=== PATIENT | female | born 1990 | race Caucasian/White ===

== ENCOUNTER → 2020-10-05 12:31 | Outpatient (BNVA) | payer OTHER, SELFPAY | PROVIDERS: Visit Provider Nurse Practitioner Family | DX: Z11.59 Encounter for screening for other viral diseases (principal); Z20.828 Contact with and (suspected) exposure to other viral communicable diseases; J06.9 Acute upper respiratory infection, unspecified | CPT/HCPCS: 87635 ==

== ENCOUNTER → 2020-10-29 14:26 | Outpatient (BNVA) | payer OTHER, SELFPAY | PROVIDERS: Visit Provider Nurse Practitioner Family | DX: Z20.828 Contact with and (suspected) exposure to other viral communicable diseases (principal) | CPT/HCPCS: 87635 ==

== ENCOUNTER 2021-10-23 15:11 | Emergency (ER) | payer BC, MEDICAID, SELFPAY ==
[2021-10-23 15:32] VITALS: BP 137/94; PULSE 112; RESP 16; TEMP 36.4; O2SAT 99; BMI 30.5
[2021-10-23 15:37] VITALS: BP 137/94; PULSE 110; RESP 16; TEMP 36.4; O2SAT 98
--- NOTE | 2021-10-23 16:20 | ED_ITS ---
HPI - Dental/Oral General: Chief complaint: Dental/Oral Stated complaint: R SIDE TOOTH PAIN Time Seen by Provider: 10/23/21 16:20 Source: patient Mode of arrival: ambulatory Limitations: no limitations History of Present Illness: HPI Narrative: Patient is a 31-year-old female here with complaints of severe dental pain. Patient states over the past several days she has had severe right lower dental pain. She was placed on Augmentin yesterday at a walk-in clinic. She states her pain is unbearable. She has been trying OTC Tylenol and topical analgesics without much relief. She has not noticed any facial swelling. She has no neck pain or difficulty swallowing. No fevers. MD Complaint: tooth pain Onset (ago): day(s) Duration: constant Severity: severe Relieving factors: nothing Associated symptoms: Reports no associated symptoms; Denies ear or mastoid pain, fever(s) or odynophagia Treatment prior to arrival: topical analgesic and oral analgesic Review of Systems Const: Denies: fever(s), chills, body aches, fatigue or malaise ENMT: Reports: dental pain; Denies: throat pain, odynophagia, hoarseness, oral sores or ear or mastoid pain Card: Denies: chest pain Resp: Denies: dyspnea GI: Denies: nausea or vomiting Musc: Denies: neck pain Skin/Breast: Denies: rash Neuro: Denies: headache(s) Physical Exam Const: COMMON NORMALS: average body habitus, patient oriented x3, no limitations, healthy appearing, alert and well nourished GENERAL APPEARANCE: cooperative and in distress (patient in tears secondary to dental pain) HENMT: COMMON NORMALS: normocephalic, atraumatic, external ears normal, EAC's normal, TM's normal bilaterally, Normal external nose present, Normal nasal mucous membranes and turbinates present, moist oral mucous membranes and oropharynx normal HEAD & SCALP: normal to inspection, normocephalic and atraumatic FACE & SINUS: normal facial exam and sinuses nontender NOSE: Normal external nose present and Normal nasal mucous membranes and turbinates present EXTERNAL EAR: Yes external ears normal EXTERNAL AUDITORY CANAL: EAC's normal TYMPANIC MEMBRANE: TM's normal bilaterally MOUTH: Normal oral and palatal mucosa present, lip normal and tongue normal TEETH & GINGIVA: Yes poor dentition and Yes other (decayed R lower molar with gingival swelling/erythema; no abscess) THROAT: posterior oropharynx normal, tonsils normal and uvula midline Eye: GENERAL EYE: appearance normal, both eyes and all related structures Neck/C-Spine: COMMON NORMALS: full ROM and no lymphadenopathy GENERAL: No anterior neck swelling and No submandibular swelling Resp: COMMON NORMALS: normal respiratory effort Cardio: COMMON NORMALS: regular rate and regular rhythm RATE: regular rate RHYTHM: regular rhythm Neuro: COMMON NORMALS: patient oriented x3 SENSORIUM/ORIENTATION: Yes alert Skin: COMMON NORMALS: no rashes or lesions noted GENERAL SKIN EXAM: no rashes or lesions noted Course Vital Signs: Vital signs: Vital Signs Temperature 97.6 F 10/23/21 15:37 Pulse Rate 106 H 10/23/21 16:51 Respiratory Rate 18 10/23/21 16:51 Blood Pressure 127/80 10/23/21 16:51 Pulse Oximetry 99 10/23/21 16:51 MDM - Dental/Oral MDM Narrative: Medical decision making narrative: Patient has been trying OTC topical and oral analgesics without relief of her discomfort. During exam she is in tears secondary to her discomfort. Patient is already taking antibiotics. She is requesting for something for to help with her discomfort. We spoke about prescription pain medication use during and the risks associated with this. Patient verbalizes understanding and would like to go ahead and try something just for a few days for relief. Discussed using smallest amount possible for the shortest amount of time possible. Recommend dental follow up as soon as possible. Discharge Plan Discharge Patient Disposition: Home Clinical Impression: Pain, dental Condition: Stable Prescriptions: New hydrocodone-acetaminophen 5-325 mg tablet 1 tab PO Q6H PRN (Reason: pain) Qty: 10 RF: 0 No Action No Known Home Medications RF: 0 Discharge Orders: Discharge ED (Routine); Ordered 10/23/21 Ordered By: Mariya Ballesteros Patient Instructions: Toothache (ED), Opioid Safety Activity Restrictions/Additional Instructions: [facility] is committed to fighting the nationwide opiate epidemic. We are providing ALL patients with information regarding opiate safety. If you received opiate pain medication during your stay or if you received a prescription for opiate pain medication-please review this handout. If not, you may disregard. Thank you. As we discussed opiate pain medication is generally not recommended during except for in cases of severe pain and the risks vs benefits must be considered. You have indicated that [id number] analgesics are not controlling your discomfort and are requesting stronger pain medications at this time despite potential risks. As we discussed please take the lowest dose possible (breaking the tablets in half) and use for the shortest amount of time possible. Please follow-up with your dentist as soon as possible. Return to ED precautions given. Coding Level of Care Code ED B[employer] Machine Helper for Jose Villafana
[2021-10-23 16:51] VITALS: BP 127/80; PULSE 106; RESP 18; O2SAT 99
== END 2021-10-23 16:43 | disposition home or self-care (01) ==
PROVIDERS: Emergency Provider Physician Assistant
DX: K08.89 Other specified disorders of teeth and supporting structures (principal)
CPT/HCPCS: 99281

== ENCOUNTER 2022-03-31 17:26 | Emergency (ER) | payer BC, MEDICAID, SELFPAY ==
[2022-03-31 17:49] VITALS: BP 150/90; PULSE 93; RESP 18; TEMP 36.3; O2SAT 100; BMI 35.2
--- NOTE | 2022-03-31 17:56 | W.ED.DENTAL ---
HPI - Dental/Oral General: Chief complaint: Dental/Oral Stated complaint: Toothache Time Seen by Provider: 03/31/22 17:56 History of Present Illness: 31-year-old female comes in today for complaints of right upper molar pain. Patient has a wisdom tooth that has broke through but has developed decay and occasionally gets infected. Patient is in a 32-week of and dentist will not remove tooth at this time. Patient comes in today due to exacerbation of pain and some mild swelling to the jaw. Review of Systems General: Reports: 10 or more systems reviewed and unremarkable except in HPI and below ENMT: Reports: dental pain Physical Exam Const: COMMON NORMALS: alert HENMT: COMMON NORMALS: normocephalic HEAD & SCALP: normocephalic TEETH & GINGIVA: Yes caries and Yes fair dentition Neck/C-Spine: COMMON NORMALS: no meningeal signs Resp: COMMON NORMALS: normal respiratory effort Cardio: COMMON NORMALS: regular rate RATE: regular rate Extremity: COMMON NORMALS: normal to inspection Neuro: SENSORIUM/ORIENTATION: Yes alert MENINGEAL SIGNS: Yes no meningeal signs Skin: COMMON NORMALS: no rashes or lesions noted GENERAL SKIN EXAM: no rashes or lesions noted Course Vital Signs: Vital signs: Vital Signs Temperature 97.4 F L 03/31/22 17:49 Pulse Rate 93 03/31/22 17:49 Respiratory Rate 18 03/31/22 17:49 Blood Pressure 150/90 03/31/22 17:49 Pulse Oximetry 100 03/31/22 17:49 [facility] - Dental/Oral Medical Decision Making 31-year-old female comes in today with dental pain. On exam patient has decayed third molar in the right upper jaw. No significant swelling of the face is noted. Patient does have some swelling and mild redness to the gingiva. Posterior pharynx is normal. Differential diagnosis includes periapical abscess, dental caries, toothache. No sign of serious illnesses noted. Patient be treated for Amoxil 503 times a day for 10 days. Patient was given 10 tablets of hydrocodone for further pain relief. Discharge Plan Discharge Patient Disposition: Home Clinical Impression: Toothache Condition: Stable Prescriptions: New amoxicillin 500 mg capsule 500 mg PO TID 10 Days Qty: 30 0RF Continued hydrocodone-acetaminophen 5-325 mg tablet 1 tab PO Q6H PRN (Reason: pain) Qty: 10 0RF Discharge Orders: Discharge ED (Routine); Ordered 03/31/22 Ordered By: Lobo Montes Discharge Diet: Usual diet Patient Instructions: Toothache (ED), Opioid Safety Activity Restrictions/Additional Instructions: Good oral care. Drink plenty of water with medication. Use ice or heat to the area for further pain relief. Follow-up with primary care for further instruction. Follow-up with dentist for definitive care. Coding Level of Care Code ED Foreign Broadcast Specialist for Jose Villafana
== END 2022-03-31 18:16 | disposition home or self-care (01) ==
PROVIDERS: Emergency Provider Nurse Practitioner Family
DX: O99.891 Other specified diseases and conditions complicating pregnancy (principal); K08.89 Other specified disorders of teeth and supporting structures; Z3A.32 32 weeks gestation of pregnancy
CPT/HCPCS: 99283

== ENCOUNTER 2022-05-08 19:00 | Outpatient (CLI) | payer BC, SELFPAY ==
[2022-05-08 19:17] VITALS: BP 140/74; PULSE 113
[2022-05-08 19:20] VITALS: TEMP 36.4; BMI 37.9
[2022-05-08 20:06] VITALS: RESP 16
[2022-05-08 20:09] VITALS: BP 132/74; PULSE 100
[2022-05-08 20:10] VITALS: TEMP 35.9
== END 2022-05-08 20:30 | disposition home or self-care (01) ==
LOC: OPOB 19:06 → OBGYN 19:07
PROVIDERS: Visit Provider Family Medicine
DX: O46.90 Antepartum hemorrhage, unspecified, unspecified trimester (principal); Z3A.00 Weeks of gestation of pregnancy not specified
CPT/HCPCS: 59025; 99211

== ENCOUNTER 2022-05-13 04:12 | Inpatient (IN) | payer BC, MEDICAID, SELFPAY ==
[2022-05-13] VITALS (82 sets, daily range): BP systolic 111–160; BP diastolic 59–94; PULSE 78–116; RESP 15–18; TEMP 36.3–37.1; O2SAT 99–100; BMI 38.0
[2022-05-13 04:28] LABS: Basophils # 0.1 10^3/uL (0.0-0.1); Basophils % 0.3 %; Eosinophils # 0.2 10^3/uL (0.0-0.8); Eosinophils % 1.3 %; Hematocrit 33.6 % (37.0-47.0); Hemoglobin 11.5 g/dL (11.5-15.3); Lymphocytes # 3.6 10^3/uL (0.8-4.8); Lymphocytes % 21.8 %; Mean Corpuscular HGB Conc 34.2 g/dL (30.0-36.0); Mean Corpuscular Hemoglobin 28.2 pg (28.0-34.0); Mean Corpuscular Volume 82.4 fl (81-99); Monocytes # 0.9 10^3/uL (0.2-0.9); Monocytes % 5.6 %; Neutrophils # 11.57 10^3/uL (1.8-7.7); Neutrophils % 70.5 %; Nucleated Red Blood Cells % 0 %; Platelet Count 406 10^3/cmm (130-400); Red Blood Count 4.08 10^6/uL (4.1-5.3); Red Cell Distribution Width 13.5 % (12.1-15.1); White Blood Count 16.4 10^3/uL (4.0-10.0)
[2022-05-13] MEDS: miSOPROStol 100 mcg tablet 25 MCG SUBLINGUAL ×2 (04:52→09:32)
--- NOTE | 2022-05-13 07:23 | PM.OPHPUD ---
Labor & Delivery H&P Update Date of Procedure: May 13, 2022 Date H&P Performed: 05/11/22 Admission Diagnosis: 32-year-old 1 at 37 weeks and 4 days presenting with spontaneous rupture of membranes Other information: The patient is an otherwise healthy female who had an unremarkable . She presented to the hospital complaining that she had leakage of fluid just prior to coming to the hospital. She had an initial gush and then some trickling after that. Her has not had any other abnormalities. Her blood work has been unremarkable. Her blood type is a positive. She her antibody screen is negative. She failed her initial glucose screen but passed her 3-hour. Her drug screen was positive for marijuana. Her hepatitis B and C, HIV, and RPR were within normal limits. She is GBS negative.
[2022-05-13 08:27] LABS: Amphetamines Screen Urine Negative (Negative); Barbiturates Screen Urine Negative (Negative); Benzodiazepines Screen Urine Negative (Negative); Cocaine Screen Urine Negative (Negative); Opiate Screen Urine Negative (Negative); PCP Screen Urine Negative (Negative); THC Screen Urine Positive (Negative)
[2022-05-13] MEDS: dextrose 5%-lactated ringers 1,000 ML 125 ML IV (15:43)
[2022-05-13] MEDS: fentaNYL 50 mcg/mL INJ 2mL IVP ×4 (15:44→23:15)
[2022-05-13] MEDS: oxytocin 30 UNIT/500 ML BAG IV (20:30)
[2022-05-13] MEDS: lactated ringers 1,000 ML 999 ML IV (21:27)
--- NOTE | 2022-05-13 22:35 | ANES.PREANE2 ---
Pre-Anesthetic Assessment Height/Weight: Height 1.7 m Weight 110.223 kg Temp Pulse Resp BP 97.5 F L 88 15 138/77 05/13/22 22:09 05/13/22 22:25 05/13/22 20:35 05/13/22 22:25 Preop Diagnosis: labor epidural Familial anesthetic complications: none Was Beta Skinny taken within 24 hours: N/A Was Clonidine taken within 24 hours: N/A Last Intake: 22:00 Social Tobacco and No alcohol 1/2 pack(s) per day 8+ pack years Exam alert, oriented x 3, clear to auscultation bilaterally and regular rate & rhythm Airway Submandibular: within normal limits Cervical ROM: within normal limits Mallampati: Class III Dentition: full (poor) Pulmonary None reported CV/HEM None reported None reported Hepatic None reported GI None reported Metabolic Morbid Obesity [facility] [place] None reported Neuropsych Anxiety and Depression Anesthetic Plan ASA status: 2 Anesthesia: Regional (specify below) (epidural) Risk of > 500 ml blood loss (7ml/kg in children): No Medications/Allergies Home Medications Medication Instructions Recorded Confirmed Last Taken Type vitamin with calcium 1 tab PO DAILY 05/13/22 05/13/22 05/12/22 08:00 History no.72-iron 27 mg-folic acid 1 mg tablet (M- Plus) Allergies Allergy/AdvReac Type Severity Reaction Status Date / Time No Known Allergies Allergy Verified 05/13/22 03:41 Current Medications Generic Name Dose Route Start Last Admin Trade Name Freq PRN Reason Stop Dose Admin Fentanyl 25 - 100 mcg 05/13/22 04:05 05/13/22 20:35 Fentanyl 50 Mcg/Ml Inj 2ml IVP 25 mcg Q1H PRN Administration SEVERE PAIN Dextrose/Lactated Ringer's 1,000 mls @ 125 mls/hr 05/13/22 04:15 05/13/22 15:43 Dextrose 5%-Lactated Ringers IV 125 mls/hr .Q8H FILIPPO Administration Oxytocin 30 unit in 500 mls @ 1 mls/hr 05/13/22 20:30 05/13/22 22:15 Pitocin IV 13 milliunit/min .Q24H FILIPPO 13 mls/hr Titration Protocol 1 MILLIUNIT/MIN Lactated Ringer's 1,000 mls @ 999 mls/hr 05/13/22 21:17 05/13/22 21:27 Lactated Ringers IV 999 mls/hr .Q1H1M PRN Administration See label comments PFSH Anesthesia Female Reproductive History : 1 Data Anesthesia : 05/13/22 04:16 Short CBC 05/13/22 Range/Units 04:16 WBC 16.4 H (4.0-10.0) 10^3/uL Hgb 11.5 (11.5-15.3) g/dL Hct 33.6 L (37.0-47.0) % MCV 82.4 (81-99) fl Plt Count 406 H (130-400) 10^3/cmm Neut % (Auto) 70.5 % Neut # (Auto) 11.57 H (1.8-7.7) 10^3/uL Cardiac Studies: No Data to Display
--- NOTE | 2022-05-13 23:39 | ANES.PROC ---
Anesthesia Procedures Procedure/Date: 05/13/22 Epidural: Time Out Performed: Yes Consents Signed: Procedure Consent and NPO Consent Consent: requested by attending/covering physician, from patient, risks and benefits reviewed and patient agrees to proceed Lumbar Level: L3-L4 Epidural position: sitting Epidural procedure: sterile prep of area, 1% lidocaine to numb the area, 18 g needle, neg for paresthesia, test dose given, 1.5% xylocaine 1:200k epi (3/2), 0.2% Ropivacaine bolus ml (5), placed PCEA, no systemic response, sterile dressing applied, L.U.D. no apparent complications and 0.2% Ropiavacaine @ mls/hr (13ml/hr) Additional Comments: unable to access epidural space at l4/l5. Moved up to l3/l4 to access epidural space
[2022-05-14] VITALS (75 sets, daily range): BP systolic 99–149; BP diastolic 58–90; PULSE 73–115; RESP 15; TEMP 36.4–36.9
[2022-05-14] MEDS: hyDROXYzine 25 mg Capsule 50 MG PO (03:01)
[2022-05-14] MEDS: dextrose 5%-lactated ringers 1,000 ML 125 ML IV ×2 (03:22→11:15)
[2022-05-14] MEDS: ALPRAZolam 0.5 mg Tablet 0.25 MG PO (05:51)
[2022-05-14] MEDS: ampicillin 2,000 MG in sodium chloride 0.9% (plus) 50 ML 100 MG IV (11:32)
--- NOTE | 2022-05-14 11:32 | ANES.PROC ---
Anesthesia Procedures Procedure/Date: 05/14/22 Other Information: Pt C/O breakthrough pain, pressure. Lido 2% 4cc and Fentanyl 100mcg given. Pt now stating she needs to push. Pt comlete. Nurse notified
--- NOTE | 2022-05-14 12:47 | P.PCNOB_ITS ---
Delivery Note: Date of delivery: May 14, 2022 Pre-delivery diagnoses: IUP at 37 weeks 3 days gestation Premature spontaneous rupture of membranes Procedure: Induction of labor and delivery Delivering Physician: Ros Rivas MD Covering for Dr. Jackson Estimated blood loss (mL): 300 Pre-Delivery Course: The patient had routine care at [facility] with Dr. Jackson. She is blood type a positive, antibody negative, GC chlamydia negative, THC positive, hepatitis B surface antigen nonreactive, hepatitis C antibody nonreactive, HIV nonreactive, rubella immune, GBS negative. She passed her glucose tolerance test. Rupture of membranes was approximately 34 hours prior to delivery. Mother did receive 1 dose of ampicillin less than 2 hours prior to delivery. She remained afebrile. Delivery: This is a 32-year-old at 37 weeks 3 days gestation who presented to labor and delivery with spontaneous rupture of membranes. Her cervix was not favorable so she was given Cytotec. After she was started on Pitocin. She did receive an epidural for pain management. She had a normal spontaneous vaginal delivery of a viable female weight 2765 g, 6 pounds 2 ounces over an intact perineum. Apgars were 8 and 9. The infant was suctioned at delivery and placed on the mother's chest. The cord was clamped and cut after 1 minute of life. Using gentle traction on the cord, the placenta was delivered grossly intact and normal to inspection. There was a small second-degree perineal laceration that was sutured using 3-0 chromic. Mother and infant were doing well after delivery. A&P Assessment and plan (1) (normal spontaneous vaginal delivery): Routine care Status: Acute Coding Level of Care Code Acute Behavior Management Specialist for Chg Fwd Diagnoses (normal spontaneous vaginal delivery) O80
--- NOTE | 2022-05-14 15:48 | ANE.PACU2 ---
Inpatient post-anesthesia follow up: Airway intact: Yes Vital signs: Temperature 98.4 F Pulse Rate 115 Respiratory Rate 18 Blood Pressure 133/86 Pulse Oximetry 99 Oxygen Delivery Me thod Room Air Oxygen Flow Rate Fraction of Inspir ed Oxygen Hydration adequate: Yes Nausea and vomiting: No Pain level: 2 Mental status: Baseline
[2022-05-14] MEDS: ibuprofen 800 mg tablet PO ×2 (16:42→21:46)
[2022-05-14] MEDS: lanolin oint 7 gm 1 APPLIC TOPICAL (16:43)
[2022-05-14] MEDS: benzocaine-menthol 78 gm Canister 1 SPRAY TOPICAL (16:43)
[2022-05-15 01:39] LABS: Hematocrit 28.1 % (37.0-47.0); Hemoglobin 9.7 g/dL (11.5-15.3); Mean Corpuscular HGB Conc 34.5 g/dL (30.0-36.0); Mean Corpuscular Hemoglobin 28.4 pg (28.0-34.0); Mean Corpuscular Volume 82.2 fl (81-99); Mean Platelet Volume 10.1 fL (7.4-10.4); Platelet Count 323 10^3/cmm (130-400); Red Blood Count 3.42 10^6/uL (4.1-5.3); Red Cell Distribution Width 13.6 % (12.1-15.1); White Blood Count 21.5 10^3/uL (4.0-10.0)
[2022-05-15 02:39] VITALS: BP 120/62; PULSE 96
[2022-05-15 06:20] VITALS: BP 125/80; PULSE 91
--- NOTE | 2022-05-15 08:43 | P.DS_ITS ---
Discharge Providers MANAGER SERVICE DESK Date of Admission: 05/13/22 04:12 Date of Discharge: 05/18/22 Attending Provider at Admission: Harpreet Jackson MD Attending Provider at Discharge: Harpreet Jackson MD Diagnoses at Discharge Discharge Diagnosis (1) (normal spontaneous vaginal delivery): Status: Resolved Reason for Visit Reason for Visit: PROM Information Peripartum Data: Delivery Method: Vaginal Physical Exam Narrative: The patient is alert. She appears comfortable. Her heart has a regular rate and rhythm with no murmurs appreciated. Lungs are clear to auscultation bilaterally. Her fundus is firm and below the umbilicus. Urinary Catheter Management: Davison: Cath Placed During This Visit: yes Reason for Continuing Indwelling Catheter: Required Immobilization for Trauma or Surgery or Anesthesia Urinary Catheter Date of Insertion: 05/14/22 Urinary Catheter Time of Insertion: 23:09 Discharge Data Studies Completed and Pending Laboratory Results WBC 21.5 10^3/uL (4.0-10.0) H 05/15/22 01:31 RBC 3.42 10^6/uL (4.1-5.3) L 05/15/22 01:31 Hgb 9.7 g/dL (11.5-15.3) L 05/15/22 01:31 Hct 28.1 % (37.0-47.0) L 05/15/22 01:31 MCV 82.2 fl (81-99) 05/15/22 01:31 MCH 28.4 pg (28.0-34.0) 05/15/22 01:31 MCHC 34.5 g/dL (30.0-36.0) 05/15/22 01:31 RDW 13.6 % (12.1-15.1) 05/15/22 01:31 Plt Count 323 10^3/cmm (130-400) 05/15/22 01:31 MPV 10.1 fL (7.4-10.4) 05/15/22 01:31 Neut % (Auto) 70.5 % 05/13/22 04:16 Lymph % (Auto) 21.8 % 05/13/22 04:16 [place] % (Auto) 5.6 % 05/13/22 04:16 Eos % (Auto) 1.3 % 05/13/22 04:16 Baso % (Auto) 0.3 % 05/13/22 04:16 Neut # (Auto) 11.57 10^3/uL (1.8-7.7) H 05/13/22 04:16 Lymph # (Auto) 3.6 10^3/uL (0.8-4.8) 05/13/22 04:16 [place] # (Auto) 0.9 10^3/uL (0.2-0.9) 05/13/22 04:16 Eos # (Auto) 0.2 10^3/uL (0.0-0.8) 05/13/22 04:16 Baso # (Auto) 0.1 10^3/uL (0.0-0.1) 05/13/22 04:16 Nucleated RBC % (auto) 0 % 05/13/22 04:16 Nucleated RBCs # 0.0 /100WBC 05/13/22 04:16 Urine Opiates Screen Negative ng/mL (Negative) 05/13/22 04:45 Ur Barbiturates Screen Negative ng/mL (Negative) 05/13/22 04:45 Ur Phencyclidine Scrn Negative ng/mL (Negative) 05/13/22 04:45 Ur Amphetamines Screen Negative ng/mL (Negative) 05/13/22 04:45 U Benzodiazepines Scrn Negative ng/mL (Negative) 05/13/22 04:45 Urine Cocaine Screen Negative ng/mL (Negative) 05/13/22 04:45 U Marijuana (THC) Screen Positive ng/mL (Negative) H 05/13/22 04:45 Vitals Last Vital Signs Temp 98.0 F 05/14/22 22:25 Pulse 91 05/15/22 06:20 Resp 15 05/14/22 13:54 BP 125/80 05/15/22 06:20 Pulse Ox 99 05/13/22 23:32 Discharge Plan Discharge Patient Disposition: Home Condition: Stable Prescriptions: New ibuprofen 800 mg Tablet 800 mg PO TID Qty: 45 0RF Continued M-Isa Plus 27 mg iron- 1 mg tablet 1 tab PO DAILY 0RF Discharge Orders: Discharge Order (Routine); Ordered 05/15/22 Ordered By: Harpreet Jackson Referrals: Harpreet Jackson MD [Physician] - 06/27/22 1:15 pm (6 week appointment 06/27/2022 @01:15 ) Discharge Diet: Usual diet Discharge Activity: Limit activity as instructed Patient Instructions: Depression (GEN), and Nipple Soreness (GEN), and Breast Engorgement (GEN), Bleeding (GEN), Preeclampsia and Eclampsia After Delivery (GEN), OB Discharge Report, OB Food/Drug Interaction Guide, Opioid Safety, OB Home Care, OB Vaginal Deliveries Discharge Attestations MANAGER SERVICE DESK Time Spent in Discharge Care*: less than 30 min Coding Level of Care Code Acute C 13 Catapult Operator for Chg Fwd Diagnoses (normal spontaneous vaginal delivery) O80
[2022-05-15 09:13] VITALS: BP 139/77; PULSE 91
[2022-05-15] MEDS: docusate sodium 100 mg Capsule PO (09:13)
[2022-05-15] MEDS: prenatal vitamin Capsule 1 CAP PO (09:13)
[2022-05-15] MEDS: ibuprofen 800 mg tablet PO (09:13)
[2022-05-15 13:59] VITALS: BP 139/77; PULSE 91; RESP 16; TEMP 36.9; O2SAT 99
== END 2022-05-15 13:56 | disposition home or self-care (01) | DRG 807 ==
LOC: OPOB 10:13 → OBGYN 10:13
PROVIDERS: Family Medicine; Admitting Provider Family Medicine; Visit Provider Family Medicine
DX: O99.324 Drug use complicating childbirth (principal); Z37.0 Single live birth; F12.90 Cannabis use, unspecified, uncomplicated; O70.1 Second degree perineal laceration during delivery; O99.334 Smoking (tobacco) complicating childbirth; F17.200 Nicotine dependence, unspecified, uncomplicated; Z3A.37 37 weeks gestation of pregnancy
CPT/HCPCS: 12345; 36415; 51702; 59025; 59409; 80306; 83986; 85025; 85027; 96374; 96376; 99211; J0290; J2795; J3010

== ENCOUNTER 2023-10-21 02:02 | Emergency (ER) | payer BC, MEDICAID, SELFPAY ==
[2023-10-21 02:09] VITALS: BP 138/74; PULSE 92; RESP 20; TEMP 36.8; O2SAT 100; BMI 34.4
--- NOTE | 2023-10-21 02:12 | CTR_ITS ---
PROCEDURE INFORMATION: Exam: CTA Head With Contrast, Arteriography Exam date and time: 10/21/2023 3:10 AM Age: 33 years old Clinical indication: Pain; Headache; Patient HX: Frontal ROY with n/v x 5 days. TECHNIQUE: Imaging protocol: Computed tomographic angiography of the head with contrast. Exam focused on the arteries. 3D rendering (Not supervised by radiologist): MIP and/or 3D reconstructed images were created by the technologist. Radiation optimization: All CT scans at this facility use at least one of these dose optimization techniques: automated exposure control; mA and/or kV adjustment per patient size (includes targeted exams where dose is matched to clinical indication); or iterative reconstruction. Contrast material: OMNI 350; Contrast volume: 100 ml; Contrast route: INTRAVENOUS (IV); REPORTING DATA: Count of CT and Cardiac NM exams in prior 12 months: This patient has received 0 known CTs and 0 known cardiac nuclear medicine studies in the 12 months prior to the current study. COMPARISON: CT head wo con* [id number] 10/21/2023 2:39 AM RADIATION DOSE METRICS: Total DLP (mGy-cm): 552.83 FINDINGS: ANTERIOR CIRCULATION: Right internal carotid artery: Intracranial segment is patent with no significant stenosis. No aneurysm. Right middle cerebral artery: No occlusion or significant stenosis. No aneurysm. Right anterior cerebral artery: No occlusion or significant stenosis. No aneurysm. Left internal carotid artery: Intracranial segment is patent with no significant stenosis. No aneurysm. Left middle cerebral artery: No occlusion or significant stenosis. No aneurysm. Left anterior cerebral artery: No occlusion or significant stenosis. No aneurysm. POSTERIOR CIRCULATION: Right vertebral artery: No occlusion or significant stenosis. No aneurysm. Left vertebral artery: No occlusion or significant stenosis. No aneurysm. Basilar artery: No occlusion or significant stenosis. No aneurysm. Right posterior cerebral artery: No occlusion or significant stenosis. No aneurysm. Left posterior cerebral artery: No occlusion or significant stenosis. No aneurysm. Brain: No definite mass, mass effect, or midline shift. Cerebral ventricles: No ventriculomegaly. Bones/joints: Unremarkable. No acute fracture. Soft tissues: Unremarkable. PROCEDURE INFORMATION: Exam: CTA Neck With Contrast Exam date and time: 10/21/2023 3:10 AM Age: 33 years old Clinical indication: Pain; Headache; Patient HX: Frontal ROY with n/v x 5 days. TECHNIQUE: Imaging protocol: Computed tomographic angiography of the neck with contrast. Exam focused on the cervical segments of the vasculature. 3D rendering (Not supervised by radiologist): MIP and/or 3D reconstructed images were created by the technologist. Radiation optimization: All CT scans at this facility use at least one of these dose optimization techniques: automated exposure control; mA and/or kV adjustment per patient size (includes targeted exams where dose is matched to clinical indication); or iterative reconstruction. Contrast material: OMNI 350; Contrast volume: 100 ml; Contrast route: INTRAVENOUS (IV); REPORTING DATA: Count of CT and Cardiac NM exams in prior 12 months: This patient has received 0 known CTs and 0 known cardiac nuclear medicine studies in the 12 months prior to the current study. COMPARISON: CT head wo con* [id number] 10/21/2023 2:39 AM RADIATION DOSE METRICS: Total DLP (mGy-cm): 552.83 FINDINGS: Right common carotid artery: No stenosis. No dissection or occlusion. Right internal carotid artery: No stenosis of the extracranial segment. No dissection or occlusion. Right external carotid artery: No occlusion or stenosis of the origin. Left common carotid artery: No stenosis. No dissection or occlusion. Left internal carotid artery: No stenosis of the extracranial segment. No dissection or occlusion. Left external carotid artery: No occlusion or stenosis of the origin. Right vertebral artery: No stenosis. No dissection or occlusion. Left vertebral artery: No stenosis. No dissection or occlusion. Soft tissues: Normal. No significant soft tissue swelling. Bones/joints: No acute fracture. CT/CT angio headneck* [id number] IMPRESSION: No large vessel stenosis or occlusion. IMPRESSION: No stenosis or occlusion. REFERENCES: NASCET CRITERIA. The degree of stenosis in the cervical segment of the internal carotid artery is based on NASCET criteria. Normal is no stenosis. Mild is less than 50% stenosis. Moderate is 50-69% stenosis. Severe is 70% to 99% stenosis. Total occlusion is no detectable patent lumen.
--- NOTE | 2023-10-21 02:12 | CTR_ITS ---
PROCEDURE INFORMATION: Exam: CT Head Without Contrast Exam date and time: 10/21/2023 2:39 AM Age: 33 years old Clinical indication: Pain; Headache; Patient HX: Frontal ROY with n/v x 5 days. TECHNIQUE: Imaging protocol: Computed tomography of the head without contrast. Radiation optimization: All CT scans at this facility use at least one of these dose optimization techniques: automated exposure control; mA and/or kV adjustment per patient size (includes targeted exams where dose is matched to clinical indication); or iterative reconstruction. REPORTING DATA: Count of CT and Cardiac NM exams in prior 12 months: This patient has received 0 known CTs and 0 known cardiac nuclear medicine studies in the 12 months prior to the current study. COMPARISON: No relevant prior studies available. RADIATION DOSE METRICS: Total DLP (mGy-cm): 883.45 FINDINGS: Brain: No hemorrhage. No edema, mass effect or midline shift. Cerebral ventricles: No ventriculomegaly. Paranasal sinuses: Visualized sinuses are unremarkable. No fluid levels. Mastoid air cells: No mastoid effusion. Bones/joints: No acute fracture. Soft tissues: Unremarkable. CT/CT head wo con* [id number] IMPRESSION: No acute intracranial abnormality.
--- NOTE | 2023-10-21 02:14 | W.ED.HA ---
HPI - Headache General: Chief Complaint: Headache Stated Complaint: headache Time Seen by Provider: 10/21/23 02:06 Source: patient Mode of arrival: ambulatory Limitations: no limitations History of Present Illness: 33-year-old female states that she had a headache over the last 5 days states the headaches currently a 10 out of 10 she had some nausea vomiting denies any history headache she denies any fever denies any neck pain some slight worsening with bright lights and loud sounds. Associated symptoms: Reports nausea; Deny chest pain, fever(s) or rash Review of Systems Const: Denies: fever(s), chills, body aches or change in appetite Eyes: Denies: blurry vision or eye discomfort ENMT: Denies: throat pain or dental pain Card: Denies: chest pain Resp: Denies: dyspnea GI: Reports: nausea; Denies: abdominal pain or diarrhea Musc: Denies: neck pain or back pain Skin/Breast: Denies: rash Neuro: Reports: headache(s) Physical Exam Const: COMMON NORMALS: no acute distress, patient oriented x3 and healthy appearing HENMT: COMMON NORMALS: normocephalic and atraumatic HEAD & SCALP: normocephalic and atraumatic Eye: COMMON NORMALS: Equal, round and reactive pupils present and conjunctivae normal CONJUNCTIVA: Yes conjunctivae normal PUPIL: Yes Equal, round and reactive pupils present Neck/C-Spine: COMMON NORMALS: full ROM, supple and no meningeal signs Chest: COMMONS NORMALS: normal inspection of the chest Resp: COMMON NORMALS: normal respiratory effort Extremity: COMMON NORMALS: normal to inspection and full ROM Neuro: COMMON NORMALS: patient oriented x3, moves all extremities and no focal motor deficits MENINGEAL SIGNS: Yes no meningeal signs Psych: COMMON NORMALS: mental status grossly normal, Normal thought process present and cooperative THOUGHT PROCESS: Normal thought process present Skin: COMMON NORMALS: no rashes or lesions noted and no wounds GENERAL SKIN EXAM: no rashes or lesions noted Course Vital Signs: Vital signs: Vital Signs Temperature 98.2 F 10/21/23 02:09 Pulse Rate 69 10/21/23 02:58 Respiratory Rate 20 H 10/21/23 02:58 Blood Pressure 138/74 10/21/23 02:58 Pulse Oximetry 98 10/21/23 02:58 MDM - Headache Medical Decision Making Patient presents here with headache is resolved here head CT CT angio normal no signs of aneurysm or mass. White counts normal no signs of meningitis she is stable for discharge she is to follow-up with PCP and return if worsening. Medical Records I reviewed the patient's medical records. Lab Data I reviewed the patient's lab results. 10/21/23 02:40 10/21/23 02:[address] 10/21/23 02:12 IMPRESSION: No acute intracranial abnormality. Head/Neck CTA 10/21/23 02:12 IMPRESSION: No large vessel stenosis or occlusion. IMPRESSION: No stenosis or occlusion. REFERENCES: NASCET CRITERIA. The degree of stenosis in the cervical segment of the internal carotid artery is based on NASCET criteria. Normal is no stenosis. Mild is less than 50% stenosis. Moderate is 50-69% stenosis. Severe is 70% to 99% stenosis. Total occlusion is no detectable patent lumen. Laboratory Results WBC 6.13 10^3/uL (3.29-11.43) 10/21/23 02:40 RBC 4.77 10^6/uL (3.85-5.65) 10/21/23 02:40 Hgb 13.20 g/dL (11.27-16.99) 10/21/23 02:40 Hct 39.2 % (36-47) 10/21/23 02:40 MCV 82.2 fl (85-98) L 10/21/23 02:40 MCH 27.7 pg (27-33) 10/21/23 02:40 MCHC 33.7 g/dL (30-55) 10/21/23 02:40 RDW 13.2 % (12.1-15.1) 10/21/23 02:40 Plt Count 226 10^3/cmm (157-399) 10/21/23 02:40 MPV 9.5 fL (7.4-10.4) 10/21/23 02:40 Neut % (Auto) 66.3 % 10/21/23 02:40 Lymph % (Auto) 28.1 % 10/21/23 02:40 [place] % (Auto) 4.7 % 10/21/23 02:40 Eos % (Auto) 0.2 % 10/21/23 02:40 Baso % (Auto) 0.5 % 10/21/23 02:40 Neut # (Auto) 4.07 10^3/uL (1.8-7.7) 10/21/23 02:40 Lymph # (Auto) 1.7 10^3/uL (0.8-4.8) 10/21/23 02:40 [place] # (Auto) 0.3 10^3/uL (0.2-0.9) 10/21/23 02:40 Eos # (Auto) 0.0 10^3/uL (0.0-0.8) 10/21/23 02:40 Baso # (Auto) 0.0 10^3/uL (0.0-0.1) 10/21/23 02:40 Nucleated RBC % (auto) 0 % 10/21/23 02:40 Nucleated RBCs # 0.0 /100WBC 10/21/23 02:40 Sodium 136 mmol/L (136-145) 10/21/23 02:40 Potassium 3.8 mmol/L (3.5-5.1) 10/21/23 02:40 Chloride 99 mmol/L (98-107) 10/21/23 02:40 Carbon Dioxide 25 mmol/L (22-29) 10/21/23 02:40 Anion Gap 15.8 (5-19) 10/21/23 02:40 BUN 6 mg/dL (6-20) 10/21/23 02:40 Creatinine 0.7 mg/dL (0.5-0.9) 10/21/23 02:40 GFR Calculation 97.6 mL/min (90-130) 10/21/23 02:40 Glucose 108 mg/dL (65-115) 10/21/23 02:40 Calculated Osmolality 280 mOsm/kg (285-295) L 10/21/23 02:40 Calcium 9.0 mg/dL (8.5-10.5) 10/21/23 02:40 Total Bilirubin 0.5 mg/dL (0.15-1.2) 10/21/23 02:40 AST 47 U/L (0-32) H 10/21/23 02:40 ALT 73 U/L (0-33) H 10/21/23 02:40 Alkaline Phosphatase 133 U/L (35-105) H 10/21/23 02:40 Total Protein 7.3 g/dL (6.6-8.7) 10/21/23 02:40 Albumin 3.8 g/dL (3.5-5.2) 10/21/23 02:40 Globulin 3.5 g/dL (1.3-4.6) 10/21/23 02:40 All radiology interpretation(s) finalized by discharge Discharge Plan Discharge Patient Disposition: Home Clinical Impression: Headache Condition: Stable Prescriptions: No Action M- Plus 27 mg iron- 1 mg tablet 1 tab PO DAILY ibuprofen 800 mg Tablet 800 mg PO TID Qty: 45 0RF Discharge Orders: Discharge ED (Routine); Ordered 10/21/23 Ordered By: Maribel Linder Referrals: Harpreet Jackson MD [Primary Care Provider] - 1-3 days Discharge Diet: Advance as tolerated Discharge Activity: Resume usual activity Patient Instructions: General Headache (ED) Coding Level of Care Code ED [employer] for Jose Villafana
[2023-10-21] MEDS: diphenhydrAMINE 50 mg/mL SDV 1mL IVP (02:40)
[2023-10-21] MEDS: iohexol 350 mg/mL 500 mL Btl (per mL) IV (02:41)
[2023-10-21] MEDS: metoclopramide 5 mg/mL SDV 2 mL 10 MG IVP (02:47)
[2023-10-21 02:50] LABS: Basophils % 0.5 %; Eosinophils % 0.2 %; Hematocrit 39.2 % (36-47); Lymphocytes # 1.7 10^3/uL (0.8-4.8); Lymphocytes % 28.1 %; Mean Corpuscular HGB Conc 33.7 g/dL (30-55); Mean Corpuscular Hemoglobin 27.7 pg (27-33); Mean Corpuscular Volume 82.2 fl (85-98); Mean Platelet Volume 9.5 fL (7.4-10.4); Monocytes # 0.3 10^3/uL (0.2-0.9); Monocytes % 4.7 %; Neutrophils # 4.07 10^3/uL (1.8-7.7); Neutrophils % 66.3 %; Nucleated Red Blood Cells % 0 %; Platelet Count 226 10^3/cmm (157-399); Red Blood Count 4.77 10^6/uL (3.85-5.65); Red Cell Distribution Width 13.2 % (12.1-15.1); White Blood Count 6.13 10^3/uL (3.29-11.43)
[2023-10-21] MEDS: LORazepam 2 mg/mL INJ 1 mL 1 MG IVP (02:57)
[2023-10-21 02:58] VITALS: BP 138/74; PULSE 69; RESP 20; O2SAT 98
[2023-10-21 03:14] LABS: Alanine Aminotransferase 73 U/L (0-33); Albumin Level 3.8 g/dL (3.5-5.2); Alkaline Phosphatase 133 U/L (35-105); Anion Gap 15.8 (5-19); Blood Urea Nitrogen 6 mg/dL (6-20); Carbon Dioxide 25 mmol/L (22-29); Chloride 99 mmol/L (98-107); Creatinine Clr Calc Pharmacy 141.3207; Globulin 3.5 g/dL (1.3-4.6); Glomerular Filtration Rate 97.6 mL/min (90-130); Glucose 108 mg/dL (65-115); Osmolality Calculated 280 mOsm/kg (285-295); Potassium 3.8 mmol/L (3.5-5.1); Sodium 136 mmol/L (136-145); Total Bilirubin 0.5 mg/dL (0.15-1.2); Total Protein 7.3 g/dL (6.6-8.7)
[2023-10-21 03:15] LABS: Aspartate Amino Transferase 47 U/L (0-32)
[2023-10-21 03:50] VITALS: PULSE 90; RESP 18; O2SAT 100
== END 2023-10-21 03:50 | disposition home or self-care (01) ==
PROVIDERS: Emergency Provider Emergency Medicine; PCP Family Medicine
DX: R51.9 Headache, unspecified (principal)
CPT/HCPCS: 70450; 70496; 70498; 80053; 85025; 96374; 96375; 99285; J1200; J2060; J2765; Q9967

== ENCOUNTER → 2023-10-24 17:44 | Outpatient (BNVA) | payer BC, MEDICAID, SELFPAY | PROVIDERS: PCP Family Medicine; Visit Provider Emergency Medicine | DX: J06.9 Acute upper respiratory infection, unspecified (principal); R51.9 Headache, unspecified | CPT/HCPCS: 87400; 87426 ==

== ENCOUNTER 2024-04-08 20:46 | Observation (INO) | payer BC, MEDICAID, SELFPAY ==
[2024-04-08 20:49] VITALS: BP 145/89; PULSE 91; RESP 16; TEMP 36.4; O2SAT 99
[2024-04-08 21:08] LABS: Add Urine Microscopic? YES; Bilirubin Urine Neg (Negative); Blood Urine 2+ (Negative); Glucose Urine UA Norm (Normal); HCG Qualitative Urine. Negative (Negative); Ketones Urine Negative (Negative); Leukocyte Esterase Urine 1+ (Negative); Nitrate Urine Negative (Negative); Protein Urine Neg (Negative); Specific Gravity, Urine 1.015 (1.005-1.030); Urine Appearance Clear (CLEAR); Urine Color Yellow (Yellow); Urobilinogen Urine Neg (Negative); pH Urine 5 (5-7)
[2024-04-08 21:10] LABS: Add Urine Culture? No; Bacteria Urine TRACE /hpf; Mucus Urine 2+ /hpf
--- NOTE | 2024-04-08 21:12 | CTR_ITS ---
PROCEDURE INFORMATION: Exam: CT Abdomen And Pelvis With Contrast Exam date and time: 04/08/2024 9:47 PM Age: 33 years old Clinical indication: Abdominal pain; Additional info: Rlq pain x3 days TECHNIQUE: Imaging protocol: Computed tomography of the abdomen and pelvis with contrast. Radiation optimization: All CT scans at this facility use at least one of these dose optimization techniques: automated exposure control; mA and/or kV adjustment per patient size (includes targeted exams where dose is matched to clinical indication); or iterative reconstruction. Contrast material: OMNI 350; Contrast volume: 100 ml; Contrast route: INTRAVENOUS (IV); COMPARISON: CT abdomen pelvis w con* [id number] 02/03/2019 3:50 AM RADIATION DOSE METRICS: Total DLP (mGy-cm): 1080 FINDINGS: Lungs: The lung bases are clear. Heart: Heart size is within normal limits. There is no pericardial effusion or pericardial thickening. Liver: There is suggestion of fatty liver, suboptimally assessed on postcontrast imaging. The liver is otherwise normal. Gallbladder and bile ducts: The gallbladder is normal. There is no ductal dilatation. Pancreas: The pancreas is normal. Spleen: The spleen is normal. Adrenal glands: The adrenal glands are normal. Kidneys and ureters: There are bilateral subcentimeter renal low-density lesions which are too small for accurate characterization, likely representing simple cysts. 1.5 cm simple cyst in the upper pole left kidney. There is normal enhancement of the kidneys. No renal calcifications are identified. There is no hydronephrosis. Stomach and bowel: There is no large or small bowel obstruction. There is no evidence of bowel wall thickening. Appendix: The appendix is thickened measuring up to 13 mm with mural hyperemia and adjacent inflammatory change. Mild reactive thickening of the cecum in the base of the appendix. Trace fluid adjacent to appendicitis. Intraperitoneal space: No fluid collections. No pneumoperitoneum. Vasculature: The aorta is normal in course and caliber. No significant atherosclerotic calcifications are present. Lymph nodes: There are no enlarged retroperitoneal or mesenteric lymph nodes. Urinary bladder: The bladder is unremarkable. Reproductive: The uterus is present. Bones/joints: No acute osseous abnormalities are seen. Soft tissues: The soft tissues are within normal limits. CT/CT abdomen pelvis w con* [id number] IMPRESSION: 1. Acute appendicitis. Trace adjacent fluid. No drainable fluid collection. 2. Other nonemergent findings above. COMMENTS: Consistent with the [employer]'s Incidental Findings Committee white paper (J Am Yoselin Radiol 2018): Any incidental renal lesion less than 1 cm or classified as too small to characterize, or any incidental cystic renal lesion characterized as simple-appearing, is likely benign. No follow-up imaging is recommended for these lesions per consensus recommendations based on imaging criteria.
--- NOTE | 2024-04-08 21:34 | ED_ITS ---
Documented by User: DUNIA Holt 04/08/24 23:26 HPI - Abdominal Pain 2 General: Chief Complaint: Abdominal Pain Stated Complaint: Lower abd pain Time Seen by Provider: 04/08/24 20:51 Source: patient Mode of arrival: ambulatory Limitations: no limitations History of Present Illness: Patient is a 33-year-old female presenting to the emergency department complaining of right lower quadrant abdominal pain for the past few days. Patient notes pain began in mid abdomen, since radiated to the right lower quadrant. She notes the pain is currently an 8/10 and has only worsened and been constant the entirety of the duration. She is noting some nausea, otherwise denies any other symptoms. She is not having any changes in bowel habits, fevers, urinary symptoms, chest pain, or shortness of breath. She does still have her appendix and gallbladder. Has not tried anything for pain. She does note the pain is worsened when she lies flat and with most movements. She has never had the pain prior. Does state the pain feels like a stabbing sensation to her right lower quadrant. It is not radiating from this point. MD elicited complaint: abdominal pain Pertinent past history: none Onset (ago): day(s) Pain Consistency: constant Location: RLQ Severity: severe Pain scale (0-10): 8 Quality: stabbing Radiation: none Exacerbating factors: movement and other (Supine) Associated Symptoms: Reports nausea; Denies change in bowel habits, chills, constipation, diarrhea, dysuria, fever(s) and vomiting Review of Systems 2 General: Reports: 10 or more systems reviewed and unremarkable except in HPI and below Const: Denies: fever(s), chills, change in appetite, change in weight or diaphoresis ENMT: Denies: throat pain or hoarseness Card: Denies: chest pain, palpitations or lightheadedness Resp: Denies: dyspnea, productive cough or wheezing GI: Reports: abdominal pain and nausea; Denies: vomiting, diarrhea, constipation or change in bowel habits : Denies: flank pain, difficulty voiding, dysuria, urinary frequency or urinary urgency Musc: Denies: neck pain or back pain Skin/Breast: Denies: rash or new lesions Neuro: Denies: headache(s) or dizziness PFSH ED 2 PFSH: Medical History Stress headaches Elevated blood pressure reading in office with white coat syndrome, without diagnosis of hypertension Nicotine dependence Marijuana smoker BMI 35.0-35.9,adult Surgical History H/O foot surgery Family History Father No problems noted. Mother Lung cancer Social History Smoking and tobacco/nicotine status: current every day tobacco/nicotine user Quit status (tobacco/nicotine): considering quitting Alcohol intake: never Substance/Drug Use: current Substance/Drug use frequency: daily Physical Exam 2 Const: COMMON NORMALS: no acute distress, average body habitus, patient oriented x3, no limitations, healthy appearing, alert and well nourished G ENERAL APPEARANCE: cooperative and comfortable NUTRITIONAL APPEARANCE: obese ORIENTATION/CONSCIOUSNESS: Yes awake HENMT: COMMON NORMALS: normocephalic, atraumatic, hearing grossly normal bilaterally, external ears normal, Normal external nose present, Normal nasal mucous membranes and turbinates present and moist oral mucous membranes HEAD & SCALP: normocephalic and atraumatic NOSE: Normal external nose present and Normal nasal mucous membranes and turbinates present EXTERNAL EAR: Yes external ears normal Eye: COMMON NORMALS: Equal, round and reactive pupils present, EOMs intact bilaterally, conjunctivae normal and normal visual jean baptiste by confrontation C ONJUNCTIVA: Yes conjunctivae normal PUPIL: Yes Equal, round and reactive pupils present Neck/C-Spine: COMMON NORMALS: full ROM, supple, no meningeal signs and no JVD Resp: COMMON NORMALS: normal respiratory effort, No retractions, No use of accessory muscles and clear to auscultation bilaterally AUSCULTATION: clear to auscultation bilaterally, no crackles, no rales, no rhonchi and no wheezes Cardio: COMMON NORMALS: no JVD, regular rate, regular rhythm, S1 normal heart sound present, S2 normal heart sound present, No gallops present (Cardio), No clicks present (Cardio), No murmurs present (Cardio), No rub (Cardio) and Peripheral pulses 2+ throughout RATE: regular rate RHYTHM: regular rhythm HEART SOUNDS: S1 normal heart sound present and S2 normal heart sound present PERIPHERAL PULSES: Peripheral pulses 2+ throughout GI: COMMON NORMALS: Normal to inspection, nondistended, normoactive bowel sounds present, Soft to palpation, No hepatosplenomegaly present and no masses INSPECTION: Yes central obesity AUSCULTATION: Yes normoactive bowel sounds PALPATION: Yes Soft to palpation, Yes Tenderness to palpation present (GI) Details: RLQ, No Guarding due to palpation present (GI), No Rigid due to palpation and Yes No hepatosplenomegaly present RECTAL EXAM: deferred O THER: Negative Rovsing's, negative rebound tenderness. Negative psoas, negative obturator. Negative heel strike. : COMMON NORMALS: Yes no CVA tenderness BLADDER/KIDNEY EXAM: Yes no CVA tenderness Back/Pelvis: COMMON NORMALS: no CVA tenderness Extremity: COMMON NORMALS: normal to inspection and full ROM Neuro: COMMON NORMALS: patient oriented x3, moves all extremities, no focal motor deficits and no sensory deficits noted SENSORIUM/ORIENTATION: Yes alert MENINGEAL SIGNS: Yes no meningeal signs Psych: COMMON NORMALS: mental status grossly normal, cooperative and speech normal SPEECH: Yes normal speech Skin: COMMON NORMALS: no rashes or lesions noted GENERAL SKIN EXAM: no rashes or lesions noted Course 2 Vital Signs: Vital signs: Vital Signs Temperature 97.6 F 04/09/24 11:55 Pulse Rate 67 04/09/24 11:55 Respiratory Rate 20 H 04/09/24 14:51 Blood Pressure 125/88 04/09/24 11:55 Pulse Oximetry 99 04/09/24 11:55 Oxygen Delivery Me thod Room Air 04/09/24 11:55 Oxygen Flow Rate 6 04/09/24 11:05 MDM - Abdominal Pain Medical Decision Making Patient seen for 4 to 5 days of right lower quadrant abdominal pain, began as mid abdominal pain. Patient still has appendix. Also noting some associated nausea. CBC showed elevation in white count as well as left shift. Rest of her lab examination unremarkable aside from some blood and leukocytes in her urine. CT abdomen pelvis showed evidence of acute appendicitis, no abscess noticed at this time. Spoke with on-call surgeon, Dr. Germain, who will see the patient tomorrow after admission to the hospital. Patient is started on Zosyn and pain medication, nausea will also be controlled. Rest of her lab work unremarkable. Her vitals have remained stable throughout her ED course. Dr. Bustos called and will see the patient, patient will going to surgery in the morning. Informed patient of this plan, she agrees. Lab Data 04/09/24 06:18 04/09/24 06:18 Labs/Radiology: Radiology Impressions Abdomen/Pelvis CT 04/08/24 21:12 IMPRESSION: 1. Acute appendicitis. Trace adjacent fluid. No drainable fluid collection. 2. Other nonemergent findings above. COMMENTS: Consistent with the [employer]'s Incidental Findings Committee white paper (J Am Yoselin Radiol 2018): Any incidental renal lesion less than 1 cm or classified as too small to characterize, or any incidental cystic renal lesion characterized as simple-appearing, is likely benign. No follow-up imaging is recommended for these lesions per consensus recommendations based on imaging criteria. ADDENDUM: 04/08/24 5060 ADDENDUM: THIS REPORT CONTAINS FINDINGS THAT MAY BE CRITICAL TO PATIENT CARE. The findings were verbally communicated via telephone conference with SUNNY HIRSCH at 11:01 PM CDT on 04/08/2024. The findings were acknowledged and understood. Chest X-Ray 04/08/24 23:40 IMPRESSION: No acute findings. Laboratory Results WBC 15.46 10^3/uL (3.29-11.43) H 04/08/24 22:18 RBC 4.34 10^6/uL (3.85-5.65) 04/08/24 22:18 Hgb 12.30 g/dL (11.27-16.99) 04/08/24 22:18 Hct 37.0 % (36-47) 04/08/24 22:18 MCV 85.3 fl (85-98) 04/08/24 22:18 MCH 28.3 pg (27-33) 04/08/24 22:18 MCHC 33.2 g/dL (30-55) 04/08/24 22:18 RDW 12.8 % (12.1-15.1) 04/08/24 22:18 Plt Count 373 10^3/cmm (157-399) 04/08/24 22:18 MPV 9.1 fL (7.4-10.4) 04/08/24 22:18 Neut % (Auto) 65.8 % 04/08/24 22:18 Lymph % (Auto) 24.6 % 04/08/24 22:18 Geary % (Auto) 5.6 % 04/08/24 22:18 Eos % (Auto) 3.3 % 04/08/24 22:18 Baso % (Auto) 0.5 % 04/08/24 22:18 Neut # (Auto) 10.18 10^3/uL (1.8-7.7) H 04/08/24 22:18 Lymph # (Auto) 3.8 10^3/uL (0.8-4.8) 04/08/24 22:18 Geary # (Auto) 0.9 10^3/uL (0.2-0.9) 04/08/24 22:18 Eos # (Auto) 0.5 10^3/uL (0.0-0.8) 04/08/24 22:18 Baso # (Auto) 0.1 10^3/uL (0.0-0.1) 04/08/24 22:18 Nucleated RBC % (auto) 0 % 04/08/24 22:18 Nucleated RBCs # 0.0 /100WBC 04/08/24 22:18 Sodium 136 mmol/L (136-145) 04/08/24 22:18 Potassium 3.7 mmol/L (3.5-5.1) 04/08/24 22:18 Chloride 101 mmol/L (98-107) 04/08/24 22:18 Carbon Dioxide 25 mmol/L (22-29) 04/08/24 22:18 Anion Gap 13.7 (5-19) 04/08/24 22:18 BUN 7 mg/dL (6-20) 04/08/24 22:18 Creatinine 0.6 mg/dL (0.5-0.9) 04/08/24 22:18 GFR Calculation 116.6 mL/min (90-130) 04/08/24 22:18 Glucose 81 mg/dL (65-115) 04/08/24 22:18 Estimat Average Glucose 97 04/09/24 00:07 Hemoglobin A1c 5.0 % (4.0-6.0) 04/09/24 00:07 Calculated Osmolality 279 mOsm/kg (285-295) L 04/08/24 22:18 Calcium 8.5 mg/dL (8.5-10.5) 04/08/24 22:18 Total Bilirubin 0.4 mg/dL (0.15-1.2) 04/08/24 22:18 AST 16 U/L (0-32) 04/08/24 22:18 ALT 22 U/L (0-33) 04/08/24 22:18 Alkaline Phosphatase 96 U/L (35-105) 04/08/24 22:18 Troponin T Baseline < 6 ng/L (0-10) 04/09/24 00:07 C-Reactive Protein 24.7 mg/L (0.0-4.9) H 04/09/24 00:07 Total Protein 6.8 g/dL (6.6-8.7) 04/08/24 22:18 Albumin 3.7 g/dL (3.5-5.2) 04/08/24 22:18 Globulin 3.1 g/dL (1.3-4.6) 04/08/24 22:18 Lipase 17 U/L (13-60) 04/08/24 22:18 Procalcitonin 0.03 ng/mL (0-0.5) 04/09/24 00:07 TSH 1.78 uIU/mL (0.27-4.20) 04/09/24 00:07 Free T4 1.17 ng/dL (0.82-1.77) 04/09/24 00:07 Free T3 3.6 PG/ML (2.0-4.4) 04/09/24 00:07 HCG, Qual Negative (Negative) 04/08/24 21: Urine Color Yellow (Yellow) 04/08/24 21: Urine Appearance Clear (CLEAR) 04/08/24 21: Urine pH 5 (5-7) 04/08/24 21: Ur Specific Patterson 1.015 (1.005-1.030) 04/08/24 21: Urine Protein Neg (Negative) 04/08/24 21: Urine Glucose (UA) Norm (Normal) 04/08/24 21: Urine Ketones Negative (Negative) 04/08/24 21: Urine Blood 2+ (Negative) H 04/08/24 21:01 Urine Nitrate Negative (Negative) 04/08/24 21: Urine Bilirubin Neg (Negative) 04/08/24 21:01 Urine Urobilinogen Neg mg/dL (Negative) 04/08/24 21:01 Ur Leukocyte Esterase 1+ (Negative) H 04/08/24 21:01 Urine RBC 5-10 /hpf (0-2) H 04/08/24 21:01 Urine WBC 5-10 /hpf (0-5) H 04/08/24 21:01 Ur Squamous Epith Cells 10-15 /hpf (0-5) H 04/08/24 21:01 Amorphous Sediment Not Reportable 04/08/24 21:01 Urine Bacteria Trace /hpf (NONE) 04/08/24 21:01 Urine Mucus 2+ /hpf 04/08/24 21:01 All radiology interpretation(s) finalized by discharge Discharge Plan Discharge Patient Disposition: Placed in Observation Admit Provider: Markos Bustos Clinical Impression: Acute appendicitis Qualifiers: Acute appendicitis type: unspecified acute appendicitis type Qualified Code(s): K35.80 - Unspecified acute appendicitis Discharge Diet: Advance as tolerated Discharge Activity: Resume usual activity Coding 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 Mother Lung cancer Social History Smoking and tobacco/nicotine status: current every day tobacco/nicotine user Quit status (tobacco/nicotine): considering quitting Alcohol intake: never Substance/Drug Use: current Substance/Drug use frequency: daily Course 2 Vital Signs: Vital signs: Vital Signs Temperature 97.6 F 04/09/24 11:55 Pulse Rate 67 04/09/24 11:55 Respiratory Rate 20 H 04/09/24 14:51 Blood Pressure 125/88 04/09/24 11:55 Pulse Oximetry 99 04/09/24 11:55 Oxygen Delivery Me thod Room Air 04/09/24 11:55 Oxygen Flow Rate 6 04/09/24 11:05 MDM - Abdominal Pain Medical Decision Making Patient seen for 4 to 5 days of right lower quadrant abdominal pain, began as mid abdominal pain. Patient still has appendix. Also noting some associated nausea. CBC showed elevation in white count as well as left shift. Rest of her lab examination unremarkable aside from some blood and leukocytes in her urine. CT abdomen pelvis showed evidence of acute appendicitis, no abscess noticed at this time. Spoke with on-call surgeon, Dr. Germain, who will see the patient tomorrow after admission to the hospital. Patient is started on Zosyn and pain medication, nausea will also be controlled. Rest of her lab work unremarkable. Her vitals have remained stable throughout her ED course. Dr. Bustos called and will see the patient, patient will going to surgery in the morning. Informed patient of this plan, she agrees. Chart reviewed Lab Data 04/09/24 06:18 04/09/24 06:18 Labs/Radiology: Radiology Impressions Abdomen/Pelvis CT 04/08/24 21:12 IMPRESSION: 1. Acute appendicitis. Trace adjacent fluid. No drainable fluid collection. 2. Other nonemergent findings above. COMMENTS: Consistent with the [place] [employer]'s Incidental Findings Committee white paper (J Am Yoselin Radiol 2018): Any incidental renal lesion less than 1 cm or classified as too small to characterize, or any incidental cystic renal lesion characterized as simple-appearing, is likely benign. No follow-up imaging is recommended for these lesions per consensus recommendations based on imaging criteria. ADDENDUM: 04/08/24 8791 ADDENDUM: THIS REPORT CONTAINS FINDINGS THAT MAY BE CRITICAL TO PATIENT CARE. The findings were verbally communicated via telephone conference with SUNNY HIRSCH at 11:01 PM CDT on 04/08/2024. The findings were acknowledged and understood. Chest X-Ray 04/08/24 23:40 IMPRESSION: No acute findings. Laboratory Results WBC 15.46 10^3/uL (3.29-11.43) H 04/08/24 22:18 RBC 4.34 10^6/uL (3.85-5.65) 04/08/24 22:18 Hgb 12.30 g/dL (11.27-16.99) 04/08/24 22:18 Hct 37.0 % (36-47) 04/08/24 22:18 MCV 85.3 fl (85-98) 04/08/24 22:18 MCH 28.3 pg (27-33) 04/08/24 22:18 MCHC 33.2 g/dL (30-55) 04/08/24 22:18 RDW 12.8 % (12.1-15.1) 04/08/24 22:18 Plt Count 373 10^3/cmm (157-399) 04/08/24 22:18 MPV 9.1 fL (7.4-10.4) 04/08/24 22:18 Neut % (Auto) 65.8 % 04/08/24 22:18 Lymph % (Auto) 24.6 % 04/08/24 22:18 Geary % (Auto) 5.6 % 04/08/24 22:18 Eos % (Auto) 3.3 % 04/08/24 22:18 Baso % (Auto) 0.5 % 04/08/24 22:18 Neut # (Auto) 10.18 10^3/uL (1.8-7.7) H 04/08/24 22:18 Lymph # (Auto) 3.8 10^3/uL (0.8-4.8) 04/08/24 22:18 Geary # (Auto) 0.9 10^3/uL (0.2-0.9) 04/08/24 22:18 Eos # (Auto) 0.5 10^3/uL (0.0-0.8) 04/08/24 22:18 Baso # (Auto) 0.1 10^3/uL (0.0-0.1) 04/08/24 22:18 Nucleated RBC % (auto) 0 % 04/08/24 22:18 Nucleated RBCs # 0.0 /100WBC 04/08/24 22:18 Sodium 136 mmol/L (136-145) 04/08/24 22:18 Potassium 3.7 mmol/L (3.5-5.1) 04/08/24 22:18 Chloride 101 mmol/L (98-107) 04/08/24 22:18 Carbon Dioxide 25 mmol/L (22-29) 04/08/24 22:18 Anion Gap 13.7 (5-19) 04/08/24 22:18 BUN 7 mg/dL (6-20) 04/08/24 22:18 Creatinine 0.6 mg/dL (0.5-0.9) 04/08/24 22:18 GFR Calculation 116.6 mL/min (90-130) 04/08/24 22:18 Glucose 81 mg/dL (65-115) 04/08/24 22:18 Estimat Average Glucose 97 04/09/24 00:07 Hemoglobin A1c 5.0 % (4.0-6.0) 04/09/24 00:07 Calculated Osmolality 279 mOsm/kg (285-295) L 04/08/24 22:18 Calcium 8.5 mg/dL (8.5-10.5) 04/08/24 22:18 Total Bilirubin 0.4 mg/dL (0.15-1.2) 04/08/24 22:18 AST 16 U/L (0-32) 04/08/24 22:18 ALT 22 U/L (0-33) 04/08/24 22:18 Alkaline Phosphatase 96 U/L (35-105) 04/08/24 22:18 Troponin T Baseline < 6 ng/L (0-10) 04/09/24 00:07 C-Reactive Protein 24.7 mg/L (0.0-4.9) H 04/09/24 00:07 Total Protein 6.8 g/dL (6.6-8.7) 04/08/24 22:18 Albumin 3.7 g/dL (3.5-5.2) 04/08/24 22:18 Globulin 3.1 g/dL (1.3-4.6) 04/08/24 22:18 Lipase 17 U/L (13-60) 04/08/24 22:18 Procalcitonin 0.03 ng/mL (0-0.5) 04/09/24 00:07 TSH 1.78 uIU/mL (0.27-4.20) 04/09/24 00:07 Free T4 1.17 ng/dL (0.82-1.77) 04/09/24 00:07 Free T3 3.6 PG/ML (2.0-4.4) 04/09/24 00:07 HCG, Qual Negative (Negative) 04/08/24 21: Urine Color Yellow (Yellow) 04/08/24 21: Urine Appearance Clear (CLEAR) 04/08/24 21: Urine pH 5 (5-7) 04/08/24 21: Ur Specific Patterson 1.015 (1.005-1.030) 04/08/24 21: Urine Protein Neg (Negative) 04/08/24 21: Urine Glucose (UA) Norm (Normal) 04/08/24 21: Urine Ketones Negative (Negative) 04/08/24 21: Urine Blood 2+ (Negative) H 04/08/24 21: Urine Nitrate Negative (Negative) 04/08/24 21: Urine Bilirubin Neg (Negative) 04/08/24 21: Urine Urobilinogen Neg mg/dL (Negative) 04/08/24 21: Ur Leukocyte Esterase 1+ (Negative) H 04/08/24 21:01 Urine RBC 5-10 /hpf (0-2) H 04/08/24 21:01 Urine WBC 5-10 /hpf (0-5) H 04/08/24 21:01 Ur Squamous Epith Cells 10-15 /hpf (0-5) H 04/08/24 21:01 Amorphous Sediment Not Reportable 04/08/24 21: Urine Bacteria Trace /hpf (NONE) 04/08/24 21: Urine Mucus 2+ /hpf 04/08/24 21:01 Discharge Plan Discharge Patient Disposition: Placed in Observation Admit Provider: Markos Bustos Clinical Impression: Acute appendicitis Qualifiers: Acute appendicitis type: unspecified acute appendicitis type Qualified Code(s): K35.80 - Unspecified acute appendicitis Discharge Diet: Advance as tolerated Discharge Activity: Resume usual activity 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
[2024-04-08] MEDS: sodium chloride 0.9% 1,000 ML 999 ML IV (21:39)
[2024-04-08] MEDS: ondansetron 2 mg/ML SDV 2 mL 4 MG IVP ×2 (21:40→23:22)
[2024-04-08] MEDS: iohexol 350 mg/mL 500 mL Btl (per mL) IV (21:49)
[2024-04-08 22:00] VITALS: BP 138/74; PULSE 76; RESP 16; O2SAT 100
[2024-04-08] MEDS: ketorolac 60 mg/2 mL INJ 30 MG IVP (22:10)
[2024-04-08 22:22] LABS: Basophils # 0.1 10^3/uL (0.0-0.1); Basophils % 0.5 %; Eosinophils # 0.5 10^3/uL (0.0-0.8); Eosinophils % 3.3 %; Lymphocytes # 3.8 10^3/uL (0.8-4.8); Lymphocytes % 24.6 %; Mean Corpuscular HGB Conc 33.2 g/dL (30-55); Mean Corpuscular Hemoglobin 28.3 pg (27-33); Mean Corpuscular Volume 85.3 fl (85-98); Mean Platelet Volume 9.1 fL (7.4-10.4); Monocytes # 0.9 10^3/uL (0.2-0.9); Monocytes % 5.6 %; Neutrophils # 10.18 10^3/uL (1.8-7.7); Neutrophils % 65.8 %; Nucleated Red Blood Cells % 0 %; Platelet Count 373 10^3/cmm (157-399); Red Blood Count 4.34 10^6/uL (3.85-5.65); Red Cell Distribution Width 12.8 % (12.1-15.1); White Blood Count 15.46 10^3/uL (3.29-11.43)
[2024-04-08 22:43] LABS: Alanine Aminotransferase 22 U/L (0-33); Albumin Level 3.7 g/dL (3.5-5.2); Alkaline Phosphatase 96 U/L (35-105); Anion Gap 13.7 (5-19); Aspartate Amino Transferase 16 U/L (0-32); Blood Urea Nitrogen 7 mg/dL (6-20); Calcium 8.5 mg/dL (8.5-10.5); Carbon Dioxide 25 mmol/L (22-29); Chloride 101 mmol/L (98-107); Creatinine Clr Calc Pharmacy 157.0915; Globulin 3.1 g/dL (1.3-4.6); Glomerular Filtration Rate 116.6 mL/min (90-130); Glucose 81 mg/dL (65-115); Lipase 17 U/L (13-60); Osmolality Calculated 279 mOsm/kg (285-295); Potassium 3.7 mmol/L (3.5-5.1); Sodium 136 mmol/L (136-145); Total Bilirubin 0.4 mg/dL (0.15-1.2); Total Protein 6.8 g/dL (6.6-8.7)
[2024-04-08] MEDS: piperacillin-tazobactam 3.375 GM in sodium chloride 0.9% (plus) 50 ML IV (23:21)
[2024-04-08 23:22] VITALS: RESP 16; O2SAT 97
[2024-04-08] MEDS: morphine 4 mg/mL SDV 1 mL IVP (23:22)
--- NOTE | 2024-04-08 23:40 | XRR_ITS ---
PROCEDURE INFORMATION: Exam: XR Chest Exam date and time: 04/08/2024 11:53 PM Age: 33 years old Clinical indication: Other: Palpitations TECHNIQUE: Imaging protocol: Radiologic exam of the chest. Views: 1 view. COMPARISON: CT abdomen pelvis w con* [id number] 04/08/2024 9:47 PM FINDINGS: Lungs: Unremarkable. No consolidation. Pleural spaces: Unremarkable. No pleural effusion. No pneumothorax. Heart/Mediastinum: Unremarkable. No cardiomegaly. Bones/joints: Unremarkable. XR/XR chest 1V portable [id number] IMPRESSION: No acute findings.
--- NOTE | 2024-04-08 23:42 | P.HP_ITS ---
Providers/Chief Complaint 2 Primary Care Provider: Harpreet Jackson MD Chief Complaint: Lower abd pain History of Present Illness Terra Mcguire is a 33 year old female with no significant past medical history, current smoker, who presents to [facility] due to abdominal pain. Patient tells me that for the last 48 hours, she has had abdominal pain, primary in the right lower quadrant associate with nausea, poor appetite, her last bowel movement was this morning, No reported fevers, no chills. she denies any medical history but does report history of intermittent heart palpitations, feeling of skipped beats, no hemoptysis, no calf pain or swelling, no travel, no cough, no shortness of breath, no lower extremity edema, no personal or family history of cad, denies drug use, Review of Systems 2 Const: Denies: fever(s) Card: Reports: palpitations Resp: Denies: dyspnea GI: Reports: abdominal pain Neuro: Denies: headache(s) Medications/Allergies Allergies Allergy/AdvReac Type Severity Reaction Status Date / Time No Known Allergies Allergy Verified 04/08/24 20:53 PFSH Acute 2 PFSH: Medical History Stress headaches Elevated blood pressure reading in office with white coat syndrome, without diagnosis of hypertension Nicotine dependence Marijuana smoker BMI 35.0-35.9,adult Surgical History H/O foot surgery Family History Father No problems noted. Mother Lung cancer Social History Smoking and tobacco/nicotine status: current every day tobacco/nicotine user Quit status (tobacco/nicotine): considering quitting Alcohol intake: never Substance/Drug Use: current Substance/Drug use frequency: daily Vitals/I&O/Wt Last Vital Signs Temp 97.6 F 04/08/24 20:49 Pulse 91 04/08/24 20:49 Resp 16 04/08/24 23:22 BP 145/89 04/08/24 20:49 Pulse Ox 97 04/08/24 23:22 O2 Del Method Room Air 04/08/24 20:49 04/08/24 04/08/24 04/09/24 14:59 22:59 06:59 Intake Total 1000 / 1000 Balance 1000 / 1000 Weight last 48 hrs Weight 90.718 kg Physical Exam 2 Const: COMMON NORMALS: no acute distress and patient oriented x3 HENMT: COMMON NORMALS: normocephalic HEAD & SCALP: normocephalic Eye: COMMON NORMALS: Equal, round and reactive pupils present and EOMs intact bilaterally Neck/C-Spine: COMMON NORMALS: no JVD Lymph: LYMPHATIC: no lymphadenopathy noted Resp: COMMON NORMALS: normal respiratory effort, No retractions, No use of accessory muscles and clear to auscultation bilaterally AUSCULTATION: clear to auscultation bilaterally Cardio: COMMON NORMALS: no JVD, regular rate, regular rhythm, S1 normal heart sound present and S2 normal heart sound present RATE: regular rate RHYTHM: regular rhythm HEART SOUNDS: S1 normal heart sound present and S2 normal heart sound present GI: INSPECTION: Yes normal to inspection AUSCULTATION: Yes normoactive bowel sounds PALPATION: Yes Soft to palpation, Yes Tenderness to palpation present (GI) Details: RLQ, No Guarding due to palpation present (GI) and No Rigid due to palpation Extremity: COMMON NORMALS: no calf tenderness and no pedal edema Neuro: COMMON NORMALS: patient oriented x3, CN's II-XII intact bilaterally and moves all extremities Psych: COMMON NORMALS: mental status grossly normal Data 04/08/24 22:18 04/08/24 22:18 A&P Assessment and plan (1) Acute appendicitis: (2) Intermittent palpitations: Plan Acute appendicitis ? CT/CT abdomen pelvis w con* [id number] IMPRESSION: 1. Acute appendicitis. Trace adjacent fluid. No drainable fluid collection. ? Plan ? Keep n.p.o. -General surgery to see in the morning ? IV fluids ? Zofran for nausea ? Morphine for pain control, ? Continue Zosyn ? Full code ? SCDs for DVT prophylaxis, Lovenox currently on hold as there might be plans on surgery Complaints of chest palpitations ? Telemetry monitoring ? TSH, ? Serial EKGs, serial troponins, telemetry monitoring ? Cardiac echo Attestations 2 Medical Necessity Statement*: Patient requires hospitalization, outpatient observation, for acute appendicitis, intermittent palpitations Diagnoses Acute appendicitis K35.80 Intermittent palpitations R00.2
[2024-04-09] VITALS (19 sets, daily range): BP systolic 119–138; BP diastolic 68–88; PULSE 59–84; RESP 14–20; TEMP 36.4–37; O2SAT 93–100; BMI 34.4
[2024-04-09] MEDS: sodium chloride 0.9% 1,000 ML 999 ML IV (00:20)
[2024-04-09 00:49] LABS: Troponin(5th) Baseline < 6 ng/L (0-10)
[2024-04-09 01:00] LABS: Free T4 Free Thyroxine 1.17 ng/dL (0.82-1.77); Procalcitonin 0.03 ng/mL (0-0.5); T3 Free 3.6 PG/ML (2.0-4.4); Thyroid Stimulating Hormone 1.78 uIU/mL (0.27-4.20)
[2024-04-09 01:11] LABS: C Reactive Protein 24.7 mg/L (0.0-4.9)
--- NOTE | 2024-04-09 01:38 | ECG_ITS ---
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 Measurements Intervals [place] Rate: 59 P: 54 [place]: 152 QRS: 40 QRSD: 80 T: 30 QT: 390 QTc: 387 Interpretive Statements SINUS BRADYCARDIA LOW QRS VOLTAGE IN PRECORDIAL LEADS [QRS DEFLECTION < 1.0 mV IN CHEST LEADS] No previous ECG available for comparison Electronically Signed On 04-09-2024 17:52:05 CDT by Jose Luis Galvin M.D. [id number]
[2024-04-09] MEDS: LORazepam 2 mg/mL INJ 10 mL MDV 0.5 MG IVP (01:52)
[2024-04-09] MEDS: sodium chloride 0.9% 1,000 ML 100 ML IV (01:52)
[2024-04-09] MEDS: nicotine 14 mg Patch 1 PATCH TRANSDERMA (02:08)
[2024-04-09 02:26] LABS: Estmated Average Glucose 97
--- NOTE | 2024-04-09 05:38 | ECG_ITS ---
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 Measurements Intervals [place] Rate: 57 P: 37 FL: 149 QRS: 17 QRSD: 90 T: 14 QT: 395 QTc: 387 Interpretive Statements SINUS BRADYCARDIA Compared to ECG 04/09/2024 01:58:46 No significant changes Electronically Signed On 04-09-2024 17:51:47 CDT by Jose Luis Galvin M.D. [id number]
[2024-04-09] MEDS: pantoprazole 40 mg SDV IVP (05:40)
[2024-04-09] MEDS: piperacillin-tazobactam 3.375 GM in sodium chloride 0.9% (plus) 50 ML IV ×2 (05:45→12:17)
[2024-04-09 06:30] LABS: Basophils # 0.1 10^3/uL (0.0-0.1); Basophils % 0.6 %; Eosinophils # 0.4 10^3/uL (0.0-0.8); Eosinophils % 3.8 %; Hematocrit 35.1 % (36-47); Lymphocytes % 25.8 %; Mean Corpuscular HGB Conc 31.6 g/dL (30-55); Mean Corpuscular Hemoglobin 28.2 pg (27-33); Mean Corpuscular Volume 89.1 fl (85-98); Mean Platelet Volume 9.3 fL (7.4-10.4); Monocytes # 0.8 10^3/uL (0.2-0.9); Monocytes % 6.6 %; Neutrophils # 7.26 10^3/uL (1.8-7.7); Nucleated Red Blood Cells % 0 %; Platelet Count 316 10^3/cmm (157-399); Red Blood Count 3.94 10^6/uL (3.85-5.65); Red Cell Distribution Width 12.9 % (12.1-15.1); White Blood Count 11.53 10^3/uL (3.29-11.43)
[2024-04-09 07:14] LABS: Blood Urea Nitrogen 6 mg/dL (6-20); Carbon Dioxide 18 mmol/L (22-29); Chloride 108 mmol/L (98-107); Creatinine Clr Calc Pharmacy 174.1357; Glomerular Filtration Rate 116.6 mL/min (90-130); Glucose 96 mg/dL (65-115); Osmolality Calculated 281 mOsm/kg (285-295); Sodium 137 mmol/L (136-145)
[2024-04-09 07:28] LABS: Anion Gap 14.7 (5-19); Potassium 3.7 mmol/L (3.5-5.1)
[2024-04-09] MEDS: morphine 4 mg/mL SDV 1 mL 2 MG IVP ×2 (07:37→13:20)
--- NOTE | 2024-04-09 09:23 | P.HP_ITS ---
Providers/Chief Complaint 2 Admitting Physician: Markos Bustos MD Primary Care Provider: Harpreet Jackson MD Chief Complaint: Lower abd pain History of Present Illness Terra Mcguire is a 33 year old female last visit 3 to 4-day history of right lower quadrant abdominal pain. Patient makes the pain worse. Nothing makes pain better. The pain is dull and constant. The pain does not radiate. She reports nausea but denies any emesis. Denies any fever, chills, diarrhea, hematochezia and/or melena. She is having a little bit of constipation. CT of the abdomen pelvis shows acute appendicitis Review of Systems 2 General: Reports: 10 or more systems reviewed and unremarkable except in HPI and below Medications/Allergies Home Medications Medication Instructions Recorded Confirmed Last Taken Type buprenorphine 8 mg-naloxone 2 mg 1 tab sublingual BID 04/09/24 04/09/24 Unknown History sublingual tablet Allergies Allergy/AdvReac Type Severity Reaction Status Date / Time No Known Allergies Allergy Verified 04/08/24 20:53 PFSH Acute 2 PFSH: Medical History Stress headaches Elevated blood pressure reading in office with white coat syndrome, without diagnosis of hypertension Nicotine dependence Marijuana smoker BMI 35.0-35.9,adult Surgical History H/O foot surgery Family History Father No problems noted. Mother Lung cancer Social History Smoking and tobacco/nicotine status: current every day tobacco/nicotine user Quit status (tobacco/nicotine): considering quitting Alcohol intake: never Substance/Drug Use: current Substance/Drug use frequency: daily Vitals/I&O/Wt Last Vital Signs Temp 97.5 F L 04/09/24 07:25 Pulse 72 04/09/24 07:25 Resp 18 04/09/24 07:37 BP 119/74 04/09/24 07:25 Pulse Ox 98 04/09/24 07:25 O2 Del Method Room Air 04/09/24 07:25 04/08/24 04/09/24 04/09/24 22:59 06:59 14:59 Intake Total 1050 / 1050 Output Total 50 / 50 Balance 1000 / 1000 Weight last 48 hrs Weight 243 lb 12.8 oz Weight 220 lb Weight 200 lb Physical Exam 2 Narrative: General : Patient is well developed , no acute distress, oriented x3 Head : Normal cephalic, a-traumatic. Ears : Pinnae and external canal are normal. Hearing is normal. Eyes : PERRLA, Sclera and injection are normal. No conjunctival discharge. Nose : Mucous membranes are without erythema. Throat : buccal mucosa is normal, gums are without significant recession or hypertrophy. Lungs : Equal chest rise bilaterally, no use of accessory muscles, trachea is midline. Cor : Rate and rhythm are normal. Abdomen : Soft, ND, tender to palpation right lower quadrant, negative Rovsing's, no g/r/m Extremities : No edema, no cyanosis or clubbing, dorsalis pedis pulses are present bilaterally, non-tender to palpation of calves. Upper extremities are normal bilaterally. Back : non-tender to palpation, no CVA tenderness. Neuro : CN II - XII intact, Upper and lower extremities have equal and full strength Data 04/09/24 06:18 04/09/24 06:18 Micro: Microbiology 04/09/24 00:10 Blood Culture - Preliminary Blood SPECIMEN COLLECTED 04/09/24 00:07 Blood Culture - Preliminary Blood SPECIMEN COLLECTED A&P Assessment and plan (1) Acute appendicitis: Plan Laparoscopic Appendectomy The risks and benefits of the procedure, including but not limited to, bleeding, infection, scar, numbness, pain, damage to surrounding structures, conversion to an open procedure, were explained to the patient. He is understanding of the risks and wishes to proceed. Antibiotics See orders Attestations 2 Medical Necessity Statement*: Patient will likely go home after the procedure unless it is suppurative gangrenous or perforated Coding Level of Care Code 75221 Diagnoses Acute appendicitis K35.80
--- NOTE | 2024-04-09 09:35 | P.ANESASSM_ITS ---
Pre-Anesthetic Assessment Height/Weight: Height 1.7 m Weight 110.586 kg Temp Pulse Resp BP Pulse Ox O2 Del Method 97.5 F L 72 18 119/74 98 Room Air 04/09/24 07:25 04/09/24 07:25 04/09/24 07:37 04/09/24 07:25 04/09/24 07:25 04/09/24 07:25 Operation Date: 04/09/24 14:05 Proposed Procedures p Laparoscopic Appendectomy(Not Applicable) - Alfredo Germain DO Last intake: Intake Last Liquid Date 04/08/24 Last Liquid Time 21:30 Last Solid Date 04/08/24 Last Solid Time 21:30 Social Tobacco 1/2 ppd x 10 years pack(s) per day Exam alert, oriented x 3, clear to auscultation bilaterally and regular rate & rhythm Airway Submandibular: within normal limits Cervical ROM: within normal limits Mallampati: Class II CV/HEM None reported Hepatic None reported GI None reported Anesthetic Plan ASA status: 2 Anesthesia: General Risk of > 500 ml blood loss (7ml/kg in children): No Medications/Allergies Home Medications Medication Instructions Recorded Confirmed Last Taken Type buprenorphine 8 mg-naloxone 2 mg 1 tab sublingual BID 04/09/24 04/09/24 Unknown History sublingual tablet Allergies Allergy/AdvReac Type Severity Reaction Status Date / Time No Known Allergies Allergy Verified 04/08/24 20:53 Current Medications Generic Name Dose Route Start Last Admin Trade Name Freq PRN Reason Stop Dose Admin Sodium Chloride 1,000 mls @ 100 mls/hr 04/09/24 00:59 04/09/24 01:52 Sodium Chloride 0.9% IV 100 mls/hr .Q10H FILIPPO Administration Piperacillin Sod/Tazobactam 50 mls @ 12.5 mls/hr 04/09/24 05:00 04/09/24 05:45 Sod 3.375 gm/ Sodium Chloride IV 12.5 mls/hr 0500,1300,2100 FILIPPO Administration Lorazepam 0.5 mg 04/09/24 01:24 04/09/24 01:52 Lorazepam 2 Mg/Ml Inj 10 Ml Mdv IVP 0.5 mg Q8H PRN Administration ANXIETY Morphine Sulfate 2 mg 04/09/24 00:59 04/09/24 07:37 Morphine 4 Mg/Ml Sdv 1 Ml IVP 2 mg Q4H PRN Administration SEVERE PAIN Pantoprazole Sodium 40 mg 04/09/24 06:00 04/09/24 05:40 Pantoprazole 40 Mg Sdv IVP 40 mg DAILY@0600 FILIPPO Administration PFSH Anesthesia Medical History Stress headaches Elevated blood pressure reading in office with white coat syndrome, without diagnosis of hypertension Nicotine dependence Marijuana smoker BMI 35.0-35.9,adult Surgical History H/O foot surgery Family History Father No problems noted. Mother Lung cancer Social History Smoking and tobacco/nicotine status: current every day tobacco/nicotine user Quit status (tobacco/nicotine): considering quitting Alcohol intake: never Substance/Drug Use: current Substance/Drug use frequency: daily Data Anesthesia 04/09/24 06:18 04/09/24 06:18 Short CBC 04/08/24 04/09/24 Range/Units 22:18 06:18 WBC 15.46 H 11.53 H (3.29-11.43) 10^3/uL Hgb 12.30 11.10 L (11.27-16.99) g/dL Hct 37.0 35.1 L (36-47) % MCV 85.3 89.1 (85-98) fl Plt Count 373 316 (157-399) 10^3/cmm Neut % (Auto) 65.8 63.0 % Neut # (Auto) 10.18 H 7.26 (1.8-7.7) 10^3/uL BMP 04/08/24 04/09/24 22:18 06:18 Sodium 136 137 Potassium 3.7 3.7 Chloride 101 108 H Carbon Dioxide 25 18 L BUN 7 6 Creatinine 0.6 0.6 Glucose 81 96 Calcium 8.5 8.0 L Cardiac Enzymes 04/09/24 Range/Units 00:07 Troponin T Baseline < 6 (0-10) ng/L Liver Function 04/08/24 Range/Units 22:18 Total Bilirubin 0.4 (0.15-1.2) mg/dL AST 16 (0-32) U/L ALT 22 (0-33) U/L Alkaline Phosphatase 96 (35-105) U/L Albumin 3.7 (3.5-5.2) g/dL Urine 04/08/24 Range/Units 21:01 Urine Color Yellow (Yellow) Urine Appearance Clear (CLEAR) Urine pH 5 (5-7) Ur Specific [place] 1.015 (1.005-1.030) Urine Protein Neg (Negative) Urine Glucose (UA) Norm (Normal) Urine Ketones Negative (Negative) Urine Nitrate Negative (Negative) Urine Bilirubin Neg (Negative) Ur Leukocyte Esterase 1+ H (Negative) Urine RBC 5-10 H (0-2) /hpf Urine WBC 5-10 H (0-5) /hpf Coags 04/09/24 00:07 C-Reactive Protein 24.7 H Microbiology 04/09/24 00:10 Blood Culture - Preliminary Blood SPECIMEN COLLECTED 04/09/24 00:07 Blood Culture - Preliminary Blood SPECIMEN COLLECTED Cardiac Studies: 2 No Data to Display
[2024-04-09] MEDS: sodium chloride 0.9% 1,000 ML 30 ML IV (10:03)
[2024-04-09] MEDS: lidocaine-epi 1% 20 mL INJ INJECTION (10:35)
--- NOTE | 2024-04-09 10:45 | P.OP_ITS ---
Operative Report Date of procedure: April 09, 2024 Pre-op diagnosis: Acute appendicitis Post-op diagnosis: same Procedure done: Laparoscopic appendectomy Implants: none Specimens removed/disposition: Appendix Surgeon: Alfredo Germain DO Anesthesia: General and Local Estimated blood loss (mL): 20 Complications: None apparent Brief History: This is a very pleasant 33-year-old female presented to the hospital with acute appendicitis. Laparoscopic appendectomy was indicated. The risk and benefits were explained and documented. Procedure: Patient was wheeled into the operative room and placed on the OR table in a supine position. Abdomen was inspected prepped and draped in usual sterile fashion. Time-out was performed and all present were in agreement. A 15 blade scalp was used to make a stab incision in the left upper quadrant and intra- abdominal insufflation was achieved using a Veress needle. After localizing the tissue incisions were made and a 12 millimeter trocar was placed into the umbilicus as well as a 5mm in the right lower quadrant and a 5 mm in the left lower quadrant . The appendix was identified and was mildly inflamed. I used the Voyant to ligate the mesoappendix at the base. I then used 2 PDS endo-loops to snare the base of the appendix. I then used the Voyant to ligate the appendix distally. The appendix was removed from the abdomen using an Endo- Catch bag through the umbilical incision. I examined the abdomen and no further pathology was identified. Hemostasis was noted. I then closed the umbilical site with a Juanjose-Francisco J and 0 Vicryl suture in a figure of 8 fashion. All ports removed. Skin was washed and dried. Incisions were closed with 4 O Vicryl in a subcuticular interrupted fashion. Skin glue was applied. Patient tolerated the procedure well.
--- NOTE | 2024-04-09 10:49 | PM.DCS ---
Discharge Providers Date of Admission: 04/09/24 00:59 Date of Discharge: April 09, 2024 Attending Provider at Admission: Markos Bustos MD Attending Provider at Discharge: Maranda Flores MD Primary Care Provider: Harpreet Jackson MD Diagnoses at Discharge Discharge Diagnosis (1) Acute appendicitis: Status: Acute Reason for Visit Reason for Visit: Lower abd pain Hospital Course Hospital Course This very pleasant 33-year-old female presented to the hospital with acute appendicitis. She underwent laparoscopic appendectomy and was discharged home in good condition the same day with antibiotics and appropriate follow-up. Physical Exam Narrative: General : Patient is well developed , no acute distress, oriented x3 Head : Normal cephalic, a-traumatic. Ears : Pinnae and external canal are normal. Hearing is normal. Eyes : PERRLA, Sclera and injection are normal. No conjunctival discharge. Nose : Mucous membranes are without erythema. Throat : buccal mucosa is normal, gums are without significant recession or hypertrophy. Lungs : Equal chest rise bilaterally, no use of accessory muscles, trachea is midline. Cor : Rate and rhythm are normal. Abdomen : Soft, ND, appropriately tender, no g/r/m Extremities : No edema, no cyanosis or clubbing, dorsalis pedis pulses are present bilaterally, non-tender to palpation of calves. Upper extremities are normal bilaterally. Back : non-tender to palpation, no CVA tenderness. Neuro : CN II - XII intact, Upper and lower extremities have equal and full strength Discharge Data Studies Completed and Pending Completed Studies During Hospitalization Category Date Time Status CT abdomen pelvis w con* [id number] Urgent Cat Scan 04/08/24 21:12 Completed XR chest 1V portable [id number] Stat Exams 04/08/24 23:40 Completed Pending at discharge Category Date Time Status Blood Culture Stat Lab 04/08/24 23:40 Results Troponin(5th) 2 Hour. Timed Lab 04/09/24 02:07 Ordered Troponin(5th) 6 hour. Timed Lab 04/09/24 06:07 Ordered CV. echo complete* [id number] Stat Ultrasound 04/09/24 23:48 Taken Radiology Impressions Abdomen/Pelvis CT 04/08/24 21:12 IMPRESSION: 1. Acute appendicitis. Trace adjacent fluid. No drainable fluid collection. 2. Other nonemergent findings above. COMMENTS: Consistent with the [employer]'s Incidental Findings Committee white paper (J Am Yoselin Radiol 2018): Any incidental renal lesion less than 1 cm or classified as too small to characterize, or any incidental cystic renal lesion characterized as simple-appearing, is likely benign. No follow-up imaging is recommended for these lesions per consensus recommendations based on imaging criteria. ADDENDUM: 04/08/24 [id number] ADDENDUM: THIS REPORT CONTAINS FINDINGS THAT MAY BE CRITICAL TO PATIENT CARE. The findings were verbally communicated via telephone conference with SUNNY HIRSCH at 11:01 PM CDT on 04/08/2024. The findings were acknowledged and understood. Chest X-Ray 04/08/24 23:40 IMPRESSION: No acute findings. Laboratory Results WBC 11.53 10^3/uL (3.29-11.43) H 04/09/24 06:18 RBC 3.94 10^6/uL (3.85-5.65) 04/09/24 06:18 Hgb 11.10 g/dL (11.27-16.99) L 04/09/24 06:18 Hct 35.1 % (36-47) L 04/09/24 06:18 MCV 89.1 fl (85-98) 04/09/24 06:18 MCH 28.2 pg (27-33) 04/09/24 06:18 MCHC 31.6 g/dL (30-55) 04/09/24 06:18 RDW 12.9 % (12.1-15.1) 04/09/24 06:18 Plt Count 316 10^3/cmm (157-399) 04/09/24 06:18 MPV 9.3 fL (7.4-10.4) 04/09/24 06:18 Neut % (Auto) 63.0 % 04/09/24 06:18 Lymph % (Auto) 25.8 % 04/09/24 06:18 [place] % (Auto) 6.6 % 04/09/24 06:18 Eos % (Auto) 3.8 % 04/09/24 06:18 Baso % (Auto) 0.6 % 04/09/24 06:18 Neut # (Auto) 7.26 10^3/uL (1.8-7.7) 04/09/24 06:18 Lymph # (Auto) 3.0 10^3/uL (0.8-4.8) 04/09/24 06:18 Sampson # (Auto) 0.8 10^3/uL (0.2-0.9) 04/09/24 06:18 Eos # (Auto) 0.4 10^3/uL (0.0-0.8) 04/09/24 06:18 Baso # (Auto) 0.1 10^3/uL (0.0-0.1) 04/09/24 06:18 Nucleated RBC % (auto) 0 % 04/09/24 06:18 Nucleated RBCs # 0.0 /100WBC 04/09/24 06:18 Sodium 137 mmol/L (136-145) 04/09/24 06:18 Potassium 3.7 mmol/L (3.5-5.1) 04/09/24 06:18 Chloride 108 mmol/L (98-107) H 04/09/24 06:18 Carbon Dioxide 18 mmol/L (22-29) L 04/09/24 06:18 Anion Gap 14.7 (5-19) 04/09/24 06:18 BUN 6 mg/dL (6-20) 04/09/24 06:18 Creatinine 0.6 mg/dL (0.5-0.9) 04/09/24 06:18 GFR Calculation 116.6 mL/min (90-130) 04/09/24 06:18 Glucose 96 mg/dL (65-115) 04/09/24 06:18 Estimat Average Glucose 97 04/09/24 00:07 Hemoglobin A1c 5.0 % (4.0-6.0) 04/09/24 00:07 Calculated Osmolality 281 mOsm/kg (285-295) L 04/09/24 06:18 Calcium 8.0 mg/dL (8.5-10.5) L 04/09/24 06:18 Total Bilirubin 0.4 mg/dL (0.15-1.2) 04/08/24 22:18 AST 16 U/L (0-32) 04/08/24 22:18 ALT 22 U/L (0-33) 04/08/24 22:18 Alkaline Phosphatase 96 U/L (35-105) 04/08/24 22:18 Troponin T Baseline < 6 ng/L (0-10) 04/09/24 00:07 C-Reactive Protein 24.7 mg/L (0.0-4.9) H 04/09/24 00:07 Total Protein 6.8 g/dL (6.6-8.7) 04/08/24 22:18 Albumin 3.7 g/dL (3.5-5.2) 04/08/24 22:18 Globulin 3.1 g/dL (1.3-4.6) 04/08/24 22:18 Lipase 17 U/L (13-60) 04/08/24 22:18 Procalcitonin 0.03 ng/mL (0-0.5) 04/09/24 00:07 TSH 1.78 uIU/mL (0.27-4.20) 04/09/24 00:07 Free T4 1.17 ng/dL (0.82-1.77) 04/09/24 00:07 Free T3 3.6 PG/ML (2.0-4.4) 04/09/24 00:07 HCG, Qual Negative (Negative) 04/08/24 21: Urine Color Yellow (Yellow) 04/08/24 21: Urine Appearance Clear (CLEAR) 04/08/24 21:01 Urine pH 5 (5-7) 04/08/24 21:01 Ur Specific [place] 1.015 (1.005-1.030) 04/08/24 21: Urine Protein Neg (Negative) 04/08/24 21: Urine Glucose (UA) Norm (Normal) 04/08/24 21: Urine Ketones Negative (Negative) 04/08/24 21: Urine Blood 2+ (Negative) H 04/08/24 21: Urine Nitrate Negative (Negative) 04/08/24 21: Urine Bilirubin Neg (Negative) 04/08/24 21: Urine Urobilinogen Neg mg/dL (Negative) 04/08/24 21: Ur Leukocyte Esterase 1+ (Negative) H 04/08/24 21: Urine RBC 5-10 /hpf (0-2) H 04/08/24 21:01 Urine WBC 5-10 /hpf (0-5) H 04/08/24 21:01 Ur Squamous Epith Cells 10-15 /hpf (0-5) H 04/08/24 21: Amorphous Sediment Not Reportable 04/08/24 21:01 Urine Bacteria Trace /hpf (NONE) 04/08/24 21:01 Urine Mucus 2+ /hpf 04/08/24 21:01 Procedures Performed Laparoscopic appendectomy Vitals Last Vital Signs Temp 97.5 F L 04/09/24 07:25 Pulse 72 04/09/24 07:25 Resp 18 04/09/24 07:37 BP 119/74 04/09/24 07:25 Pulse Ox 98 04/09/24 07:25 O2 Del Method Room Air 04/09/24 09:38 Discharge Plan Discharge Patient Disposition: Home Condition: Stable Prescriptions: New oxycodone 5 mg tablet 5 mg PO Q6H PRN (Reason: pain) Qty: 14 0RF Colace 100 mg capsule 100 mg PO BID Qty: 14 0RF Miralax 17 gram/dose powder 17 g PO DAILY 6 Days Qty: 119 0RF amoxicillin-pot clavulanate 875-125 mg tablet 1 tab PO BID Qty: 20 0RF Continued buprenorphine-naloxone 8-2 mg Tablet, Sublingual 1 tab SUBLINGUAL BID Discharge Orders: Discharge Order (Routine); Ordered 04/09/24 Ordered By: Alfredo Germain Referrals: Harpreet Jackson MD [Primary Care Provider] - 4-7 days Alfredo Germain DO [Physician] - 2 weeks Discharge Diet: Advance as tolerated Discharge Activity: Resume usual activity Patient Instructions: Opioid Safety, Post Anesthesia Care Activity Restrictions/Additional Instructions: Do not soak incisions underwater for 2 weeks. Shower daily. Discharge Attestations Time Spent in Discharge Care*: less than 30 min Quality Metrics Clinical Quality Measures [ No reported AMI, CVA or VTE this stay] Coding Level of Care Code Acute Code for [facility] Fwd Diagnoses Acute appendicitis K35.80
[2024-04-09] MEDS: HYDROmorphone 1 mg/mL INJ 1 mL IVP (12:16)
--- NOTE | 2024-04-09 13:51 | ANE.PACU2 ---
Inpatient post-anesthesia follow up: Vital signs: Temperature 97.6 F Pulse Rate 67 Respiratory Rate 20 Blood Pressure 125/88 Pulse Oximetry 99 Oxygen Delivery Me thod Room Air Oxygen Flow Rate 6 Fraction of Inspir ed Oxygen Hydration adequate: Yes Nausea and vomiting: No Pain level: controlled Mental status: Baseline Additional Comments: no apparent anesthetic complcations noted
--- NOTE | 2024-04-09 18:56 | PC.NURSE ---
2mg morphine wasted with Teo RANKIN. Unable to waste in pyxis after patient discharged.
--- NOTE | 2024-04-09 23:48 | USCV_ITS ---
Terra Mcguire Age: 33 Gender: F : 1990 Exam Date: 04/09/2024 03:16 Ordering Phys: Markos Bustos MD Technologist: HILARIO [place] [facility] [place]: palpitations. pre-op clearance for appendicitis. BP: 145 / 89 HR: 60 Rhythm: Sinus Technical Quality: Adequate MEASUREMENTS (Male / Female) Normal Values 2D ECHO LV Diastolic Diameter PLAX 4.4 cm 4.2 - 5.9 / 3.9 - 5.3 cm IVS Diastolic Thickness 1.6 cm 0.6 - 1.0 / 0.6 - 0.9 cm IVS Systolic Thickness 2.0 cm LVPW Diastolic Thickness 1.2 cm 0.6 - 1.0 / 0.6 - 0.9 cm LVPW Systolic Thickness 1.4 cm LVOT Diameter 1.7 cm LV Ejection Fraction 2D Teich 71.6 % LV Ejection Fraction MOD 2C 69.4 % LV Ejection Fraction 2C AL 72.8 % LA Diameter 3.7 cm LA Sys Volume AL 42.9 cm cubed LA Sys Volume Index AL 20.4 cm cubed/m squared Aorta at Sinotubular Diameter 3.1 cm IVC Diameter 1.1 cm M-MODE LA Ao Ratio MM 1.1 AV Cusp Separation MM 2.0 cm DOPPLER AV Peak Velocity 107.0 cm/s LVOT Peak Velocity 77.0 cm/s AV Area Cont Eq vti 1.7 cm squared AV Area Cont Eq pk 1.7 cm squared MV Peak Velocity 114.0 cm/s MV Area PHT 4.8 cm squared Mitral E to A Ratio 3.1 TV Peak Velocity 217.0 cm/s TR Peak Velocity 217.0 cm/s TR Peak Gradient 18.8 mmHg TV Peak E Velocity 59.0 cm/s Right Atrial Pressure 3.0 mmHg Pulmonary Artery Systolic Pressu 21.8 mmHg PV Peak Velocity 118.0 cm/s FINDINGS Left Ventricle Left ventricle is normal in size. LV systolic function is normal with EF of 55-60%. No regional wall motion abnormalities. Right Ventricle Normal in size and function Right Atrium Normal in size Left Atrium Normal in size Mitral Valve Structurally normal mitral valve. Mild mitral regurgitation Aortic Valve Structurally normal aortic valve. No significant stenosis or regurgitation. Tricuspid Valve Insufficient TR jet to calculate RVSP Pulmonic Valve Mild pulmonic regurgitation. Pericardium Normal Aorta Normal in size IVC Appears to be normal CONCLUSIONS LV systolic function is normal with EF of 55-60% Mild mitral regurgitation Mild pulmonic regurgitation No comparison studies are available. Jose Luis Galvin MD (Electronically Signed) Final Date: 09 Apr 2024 18:10 S
== END 2024-04-09 14:39 | disposition home or self-care (01) ==
LOC: ER 23:52 → MEDSURG 04-09 00:02
PROVIDERS: Emergency Medicine; Surgery; Admitting Provider Family Medicine; Emergency Provider Physician Assistant; PCP Family Medicine; Visit Provider Internal Medicine
PROC: 0DTJ4ZZ Resection of Appendix, Percutaneous Endoscopic Approach (ICD-10-PCS; CPT 44970; principal; 2024-04-09 13:55)
DX: K35.80 Unspecified acute appendicitis (principal); F17.200 Nicotine dependence, unspecified, uncomplicated
CPT/HCPCS: 44970; 36415; 71045; 74177; 80048; 80053; 81001; 81025; 83036; 83690; 84145; 84439; 84443; 84481; 84484; 85025; 86140; 87040; 88304; 93005; 93306; 96365; 96375; 96376; 99285; C9113; G0378; J1170; J1885; J2060; J2250; J2270; J2405; J2543; J2704; J2710; J3010; J7030; Q9967

== ENCOUNTER 2024-04-25 09:54 | Outpatient (CLI) | payer BC, MEDICAID, SELFPAY ==
--- NOTE | 2024-04-25 10:07 | FL_ITS ---
WS: [id number] Exam: FL barium swallow modifd [id number] Date/Time of Exam: 04/25/2024 10:07 AM Reason For Exam: Oropharyngeal dysphagia Fluoroscopy time: 1min [id number] minutes # of spot films: Modified barium swallow was performed in conjunction with the speech therapy service. The patient tolerated all consistencies of barium mixture foodstuffs without aspiration or penetratio n. The patient had no difficulty ingesting a barium tablet. FL/FL barium swallow modifd [id number] IMPRESSION: 1. Unremarkable modified barium swallow study. No aspiration or penetration. A separate report with recommendations will follow from the speech therapy serv ice.
== END 2024-04-25 09:55 | disposition home or self-care (01) ==
LOC: RAD 09:54
PROVIDERS: PCP Family Medicine; Visit Provider Family Medicine
DX: R13.12 Dysphagia, oropharyngeal phase (principal)
CPT/HCPCS: 74230; 92611